=== PATIENT | female | born 1975 | race Caucasian/White ===

== ENCOUNTER 2016-07-31 17:42 | Observation (INO) ==
[2016-07-31] MEDS ORDERED: SODIUM CHLORIDE 0.9% 500 ML IV STA (18:09)
[2016-07-31] MEDS ORDERED: NITROGLYCERIN 2% OINT 1 INCH/GM PACK TOP STA (18:09)
[2016-07-31] MEDS ORDERED: ASPIRIN 325 MG TABLET PO STA (18:09)
[2016-07-31] MEDS ORDERED: ENOXAPARIN 100 MG/ML SYRINGE SUBCUT STA (18:09)
[2016-07-31] MEDS ORDERED: ONDANSETRON 4 MG/2 ML VIAL IV STA (18:09)
[2016-07-31] MEDS ORDERED: MORPHINE 2 MG/1 ML SYRINGE IV STA (18:09)
[2016-07-31] MEDS ORDERED: ONDANSETRON 4 MG/2 ML VIAL ONE (18:19)
[2016-07-31] MEDS ORDERED: MORPHINE 2 MG/1 ML SYRINGE ONE (18:19)
[2016-07-31] MEDS ORDERED: ENOXAPARIN 80 MG/0.8 ML SYRINGE SUBCUT ONE (18:19)
[2016-07-31] MEDS ORDERED: ASPIRIN 325 MG TABLET ONE (18:20)
[2016-07-31 18:22] LABS: Basophils % 0.3 % (0.0-0.8); Eosinophils # 0.1 10*3/uL (0.0-0.87); Eosinophils % 1.8 % (0.00-10.9); Hematocrit 40.4 VOL% (35.7-47.0); Hemoglobin 13.7 GM/DL (12.0-16.0); Immature Granulocytes % 0.3 %; Immature Granulocytes Absolute 0.02 #; Lymphocytes # 2.7 10*3/uL (1.4-4.0); Lymphocytes % 38.5 % (21.3-54.2); Mean Corpuscular HGB Conc 33.9 GM/DL (32-36); Mean Corpuscular Hemoglobin 31 PG (27-34); Mean Corpuscular Volume 90.6 FL (87-102); Mean Platelet Volume 12.9 FL (9.6-12.0); Monocytes # 0.6 10*3/uL (0.11-0.8); Monocytes % 8.3 % (1.7-12.7); Neutrophils # 3.6 10*3/uL (1.4-7.4); Neutrophils % 50.8 % (38.7-73.9); Platelet Count 132 T/CUMM (130-400); Red Blood Count 4.46 MC/CUMM (3.8-5.5); Red Cell Distribution Width 12.7 % (9.3-17.3); White Blood Count 7.1 T/CUMM (4-12)
[2016-07-31] MEDS ORDERED: NITROGLYCERIN 2% OINT 1 INCH/GM PACK TOP ONE (18:22)
[2016-07-31 18:28] LABS: PT Patient Result 10.5 SECS
[2016-07-31 18:35] LABS: Alanine Aminotransferase 25 U/L (13-56); Albumin 3.3 G/DL (3.4-5.0); Alkaline Phosphatase 83 U/L (45-117); Aspartate Amino Transferase 25 U/L (0-37); Bilirubin,Total < 0.39 MG/DL (0.2-1.0); Blood Urea Nitrogen 10 MG/DL (7-18); Calcium 9.7 MG/DL (8.5-10.1); Glucose 94 MG/DL (74-106); Magnesium 2.1 MG/DL (1.8-2.4); Osmolality,Calculated 286.7 MOS/KG (273-304); Sodium 145 MMOL/L (136-145); Total Protein 6.5 G/DL (6.4-8.3)
--- NOTE | 2016-07-31 18:41 | XRay Report ---
XR chest 1V portable Indication: Chest pain. Chest one view: Comparison 02/16/2015. Heart size and mediastinal contour are normal. Lungs are hypoinflated but generally clear, except for minimal bibasilar atelectasis. Pleural spaces are clear. Bones are intact. Impression: Mild pulmonary hypoinflation with atelectasis. PROCEDURE INTERPRETED AT [facility] DEPARTMENT OF RADIOLOGY Final Report Signed by: Ike Zuluaga M.D.
--- NOTE | 2016-07-31 19:06 | Emergency Department Note ---
Fabiola Powell Gwan, am scribing for, and in the presence of, Fede yS MD 18:26. Yossi Powell Robert M, MD, personally performed the services described in this documentation, ascribed by Christian Hicks in my presence, and it is both accurate and complete 906 . Arrival - Arrival Chief Complaint: Chest Pain Stated Complaint: Chest pain ED Nursing Triage Note: Arrived per EMS on stretcher. Complains of chest pain starting around 1700. Radiating to left arm. States that she had nausea and diaphoresis. Denies cardiac history. 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 She has a PMHx of HTN and high cholesterol. Patient describes her chest pain as constant/sharp and that it radiates to her left arm prompting her visit to the ED for further evaluation. En route, pt was given NTG with some relief. Her associated sxs have been nausea and diaphoresis. Patient confirmed a SHx of ETOH use, smoking cigarettes and smoking marijuana. During exam, pt stated that she is not having any chest discomfort. Onset (ago): hour(s) Consistency: constant Severity: moderate Date of Last Menstrual Period: Hyst Allergies/Adverse Reactions: Allergies Allergy/AdvReac Type Severity Reaction Status Date / Time Penicillins Allergy RASH Verified 06/14/14 22:28 Home Medications: Home Medications Medication Instructions Recorded Confirmed Type Acetamin/Codeine 300-30 Tab 300 mg PO QID 06/14/14 02/16/15 History [Tylenol/Codeine #3] Fluoxetine HCl [Prozac] 25 mg PO DAILY 06/14/14 02/16/15 History HydrOXYzine PAMOATE CAP [Vistaril 25 mg PO BID 06/14/14 02/16/15 History Cap] Losartan/Hctz 50-12.5 [Hyzaar 1 tablet PO DAILY 06/14/14 02/16/15 History 50-12.5] clonazePAM [Klonopin] 0.5 mg PO DAILY 06/14/14 02/16/15 History Diclofenac Sodium Tab [Voltaren] 50 mg PO TID #10 tablet 08/06/14 02/16/15 Rx Gabapentin [Gabapentin] 600 mg PO TID 08/06/14 02/16/15 History Benzonatate [Tessalon] 200 mg PO TID #20 capsule 10/15/14 02/16/15 Rx Ciprofloxacin Tab [Cipro Tab] 500 mg PO Q12HR #20 tablet 10/15/14 02/16/15 Rx Ketorolac Tab [Toradol Tab] 10 mg PO Q6H PRN #20 tablet 10/15/14 02/16/15 Rx Sulfameth/Trimeth 800-160 Tab 1 tablet PO BID 10 Days 02/17/15 Rx [Bactrim Ds Tab] Review of System - Review of System 12 point system: reviewed and no additional remarkable complaints except as stated - Review of System Constitutional: Present: as per HPI. Absent: chills, diaphoresis, fever Eyes: Absent: discharge Head/Ears/Nose/Throat: Absent: earache Respiratory: Absent: cough Cardiovascular: Present: as per HPI, chest pain Gastrointestinal: Absent: abdominal pain, nausea, vomiting, diarrhea Genitourinary female: Absent: dysuria Musculoskeletal: Absent: arm pain, back pain, leg pain, neck pain Skin: Absent: rash, lesions Neurological: Absent: headache, weakness Psychiatric: Absent: anxiety, depression Medical,Surgical,& Family Hx - Medical History Cardio: History of: Hypertension Psychological: History of: Anxiety Disorders, Depression Endocrine: History of: Dyslipidemia Other: History of: Miscellaneous Medical Problems (HIGH CHOLESTEROL) - Surgical History Reproductive Surgeries: Surgical HX of;: Hysterectomy - Family History Family History: Reports;: Family Heart Disease (paternal grandmother age greater than 60) - Social History Smoking Status: Current every day smoker Frequency of Alcohol Use: Occasionally Type of Drug Use: Marijuana Exam Vital Signs: Vital Signs Temperature 98.7 F 07/31/16 17:57 Pulse Rate 51 L 07/31/16 18:42 Respiratory Rate 21 07/31/16 18:42 Blood Pressure 154/77 07/31/16 18:42 O2 Sat by Pulse Oximetry 100 07/31/16 18:42 - General General appearance: alert, in no apparent distress - Head Head exam: Present: atraumatic, normocephalic - Eye Eye exam: Present: normal appearance, PERRL, EOMI - ENT ENT exam: Present: normal oropharynx, mucous membranes moist, TM's normal bilaterally, normal external ear exam - Neck Neck exam: Present: full ROM, trachea midline. Absent: tenderness - Chest Chest inspection: Present: symmetric chest wall rise. Absent: tenderness - Respiratory Respiratory exam: Present: normal lung sounds bilaterally. Absent: respiratory distress - Cardiovascular Cardiovascular exam: Present: regular rate, normal rhythm, normal heart sounds. Absent: murmur - Abdominal Exam Abdominal exam: Present: soft, normal bowel sounds. Absent: distention, tenderness - Extremities Exam Extremities exam: Present: full ROM. Absent: tenderness - Back Exam Back exam: Present: full ROM. Absent: tenderness - Neurological Exam Neurological exam: Present: alert, oriented X3, CN II-XII intact. Absent: motor sensory deficit - Psychiatric Psychiatric exam: Present: normal affect, normal mood - Skin Skin exam: Present: warm, dry, intact, normal color Course - Consultations Consultation #1: We will admit to the hospitalist service. Time: 19:26 Results - Labs CBC & BMP: 07/31/16 18:01 07/31/16 18:01 Lab Results: I have reviewed the patients labs Labs: Lab Results WBC 7.1 T/CUMM (4-12) 07/31/16 18:01 RBC 4.46 MC/CUMM (3.8-5.5) 07/31/16 18:01 Hgb 13.7 GM/DL (12.0-16.0) 07/31/16 18:01 Hct 40.4 VOL% (35.7-47.0) 07/31/16 18:01 MCV 90.6 FL (87-102) 07/31/16 18:01 MCH 31 PG (27-34) 07/31/16 18:01 MCHC 33.9 GM/DL (32-36) 07/31/16 18:01 RDW 12.7 % (9.3-17.3) 07/31/16 18:01 Plt Count 132 T/CUMM (130-400) 07/31/16 18:01 MPV 12.9 FL (9.6-12.0) H 07/31/16 18:01 Neut % (Auto) 50.8 % (38.7-73.9) 07/31/16 18:01 Lymph % (Auto) 38.5 % (21.3-54.2) 07/31/16 18:01 [place] % (Auto) 8.3 % (1.7-12.7) 07/31/16 18:01 Eos % (Auto) 1.8 % (0.00-10.9) 07/31/16 18:01 Baso % (Auto) 0.3 % (0.0-0.8) 07/31/16 18:01 Neut # (Auto) 3.6 10*3/uL (1.4-7.4) 07/31/16 18:01 Lymph # (Auto) 2.7 10*3/uL (1.4-4.0) 07/31/16 18:01 [place] # (Auto) 0.6 10*3/uL (0.11-0.8) 07/31/16 18:01 Eos # (Auto) 0.1 10*3/uL (0.0-0.87) 07/31/16 18:01 Baso # (Auto) 0.0 10*3/uL (0.0-0.2) 07/31/16 18:01 Immature Gran % 0.3 % 07/31/16 18:01 Nucleated RBC % 0.0 /100WBC 07/31/16 18:01 Immature Gran # 0.02 # 07/31/16 18:01 Nucleated RBCs # 0.00 10*3/uL 07/31/16 18:01 INR 1.0 07/31/16 18:01 PT Patient/Control Mix 10.5 SECS 07/31/16 18:01 Sodium 145 MMOL/L (136-145) 07/31/16 18:01 Potassium 3.0 MMOL/L (3.5-5.1) L 07/31/16 18:01 Chloride 107 MMOL/L (98-107) 07/31/16 18:01 Carbon Dioxide 30 MMOL/L (21-32) 07/31/16 18:01 Anion Gap 11.0 MMOL/L (5.0-15.0) 07/31/16 18:01 BUN 10 MG/DL (7-18) 07/31/16 18:01 Creatinine 0.80 MG/DL (0.55-1.02) 07/31/16 18:01 GFR Calculation 92 ML/MIN 07/31/16 18: BUN/Creatinine Ratio 12.00 RATIO (6.00-20.00) 07/31/16 18: Glucose 94 MG/DL (74-106) 07/31/16 18: Calculated Osmolality 286.7 MOS/KG (273-304) 07/31/16 18:01 Calcium 9.7 MG/DL (8.5-10.1) 07/31/16 18: Magnesium 2.1 MG/DL (1.8-2.4) 07/31/16 18: Total Bilirubin < 0.39 MG/DL (0.2-1.0) 07/31/16 18: AST 25 U/L (0-37) 07/31/16 18: ALT 25 U/L (13-56) 07/31/16 18: Alkaline Phosphatase 83 U/L (45-117) 07/31/16 18: Troponin I < 0.015 NG/ML (0.00-0.045) 07/31/16 18: B-Natriuretic Peptide 48 PG/ML (2-100) 07/31/16 18:01 Total Protein 6.5 G/DL (6.4-8.3) 07/31/16 18:01 Albumin 3.3 G/DL (3.4-5.0) L 07/31/16 18: Globulin 3.2 G/DL (2.3-3.5) 07/31/16 18:01 Albumin/Globulin Ratio 1.0 RATIO (1.1-2.2) L 07/31/16 18: Lipase 293.0 U/L (73-393) 07/31/16 18:01 Urine Color Yellow (Yellow) 07/31/16 18:01 Urine Appearance Cloudy (Clear) 07/31/16 18: Urine pH 6.0 (4.5-8.0) 07/31/16 18: Ur Specific [place] 1.005 (1.001-1.035) 07/31/16 18: Urine Protein Negative MG/DL 07/31/16 18:01 Urine Glucose (UA) Negative mg/dL (Negative) 07/31/16 18: Urine Ketones Negative mg/dL (Negative) 07/31/16 18:01 Urine Blood Small mg/dL (Negative) 07/31/16 18:01 Urine Nitrate Negative (Negative) 07/31/16 18:01 Urine Bilirubin Negative mg/dL (Negative) 07/31/16 18:01 Urine Urobilinogen < 2.0 EU/DL (0.2-1.0) H 07/31/16 18:01 Urine Leukocytes Trace Kaitlin/ul (Negative) 07/31/16 18:01 Urine WBC 7 /HPF (0-6) 07/31/16 18:01 Ur Squamous Epith Cells Occasional /HPF (0-10) 07/31/16 18:01 Urine Bacteria Few /HPF (Few) 07/31/16 18:01 Ur Culture Indicated? Results to follow 07/31/16 18:01 Urine Opiates Screen Negative (Negative) 07/31/16 18:01 Ur Barbiturates Screen Negative (Negative) 07/31/16 18:01 Ur Phencyclidine Scrn Negative (Negative) 07/31/16 18:01 U Amphetamine/Methamph Negative (Negative) 07/31/16 18:01 U Benzodiazepines Scrn Negative (Negative) 07/31/16 18:01 U Cocaine Metab Screen Negative (Negative) 07/31/16 18:01 U Cannabinoids Screen Positive (Negative) H 07/31/16 18:01 Disposition Clinical Impression: Chest pain Case discussed with: patient, patient's family Disposition: Still a Patient Condition: Stable Time of Disposition: 19:27
[2016-07-31 19:17] LABS: Apearance,Urine CLOUDY (Clear); Bacteria,Urine Few /HPF (Few); Bilirubin,Urine Negative (Negative); Blood, Urine Small mg/dL (Negative); Glucose,Urine (UA) Negative (Negative); Ketones,Urine Negative (Negative); Nitrite,Urine Negative (Negative); Protein,Urine Negative; Squamous Epithelial Cell,Urine Occasional /HPF (0-10); Urine Color Yellow (Yellow); Urine Specific Gravity 1.005 (1.001-1.035); Urine Urobilinogen < 2.0 EU/DL (0.2-1.0); WBC,Urine 7 /HPF (0-6)
[2016-07-31 19:23] LABS: Barbiturates Screen,Urine Negative (Negative); Benzodiazepines Screen,Urine Negative (Negative); Cannabinoid Screen,Urine Positive (Negative); Opiate Screen,Urine Negative (Negative); Phencyclidine Screen,Urine Negative (Negative)
[2016-07-31] MEDS ORDERED: POTASSIUM CHLORIDE 20 MEQ TABLET PO STA (19:25)
[2016-07-31] MEDS ORDERED: ONDANSETRON 4 MG/2 ML VIAL IV PRN (19:29)
[2016-07-31] MEDS ORDERED: ENOXAPARIN 40 MG/0.4 ML SYRINGE SUBCUT SCH (19:30)
[2016-07-31] MEDS ORDERED: POTASSIUM CHLORIDE 20 MEQ TABLET PO ONE (20:00)
--- NOTE | 2016-07-31 20:03 | Hospitalist History & Physical ---
Assessment and Plan (1) Hypertension Status: Acute Current Visit: Yes (2) Dyslipidemia Status: Acute Current Visit: Yes (3) Depression with anxiety Status: Acute Current Visit: Yes (4) Chest pain Status: Acute Assessment and plan: Our plan for this patient will be admission to our service. Patient will be placed in telemetry. Serial cardiac enzymes will be drawn. Consult cardiology and check a fasting lipid profile. When home meds are confirmed we will continue those as appropriate Current Visit: Yes History of Present Illness Chief complaint: Chest discomfort History of present illness: Ms. Loya is a 41 year old female with past medical history significant for hypertension includes cholesterol depression and anxiety who is in her normal state of health until 3 hours prior to arrival. Patient reports that time she she felt chest discomfort. She said it was feeling like a pressure sensation with a sharp component. She felt diaphoretic and shortness of breath. It radiated to her left arm. She got concerned that it was her heart and came to our hospital for further evaluation. Workup thus has been negative and I was consulted to admit her through the emergency room Home Medications Medication Instructions Recorded Confirmed Type Acetamin/Codeine 300-30 Tab 300 mg PO QID 06/14/14 02/16/15 History [Tylenol/Codeine #3] Fluoxetine HCl [Prozac] 25 mg PO DAILY 06/14/14 02/16/15 History HydrOXYzine PAMOATE CAP [Vistaril 25 mg PO BID 06/14/14 02/16/15 History Cap] Losartan/Hctz 50-12.5 [Hyzaar 1 tablet PO DAILY 06/14/14 02/16/15 History 50-12.5] clonazePAM [Klonopin] 0.5 mg PO DAILY 06/14/14 02/16/15 History Diclofenac Sodium Tab [Voltaren] 50 mg PO TID #10 tablet 08/06/14 02/16/15 Rx Gabapentin [Gabapentin] 600 mg PO TID 08/06/14 02/16/15 History Benzonatate [Tessalon] 200 mg PO TID #20 capsule 10/15/14 02/16/15 Rx Ciprofloxacin Tab [Cipro Tab] 500 mg PO Q12HR #20 tablet 10/15/14 02/16/15 Rx Ketorolac Tab [Toradol Tab] 10 mg PO Q6H PRN #20 tablet 10/15/14 02/16/15 Rx Sulfameth/Trimeth 800-160 Tab 1 tablet PO BID 10 Days 02/17/15 Rx [Bactrim Ds Tab] Allergies Allergy/AdvReac Type Severity Reaction Status Date / Time Penicillins Allergy RASH Verified 06/14/14 22:28 Medical,Surgical,& Family Hx - Medical History Cardio: History of: Hypertension Psychological: History of: Anxiety Disorders, Depression Endocrine: History of: Dyslipidemia Other: History of: Miscellaneous Medical Problems (HIGH CHOLESTEROL) - Surgical History Reproductive Surgeries: Surgical HX of;: Hysterectomy - Family History Family History: Reports;: Family Heart Disease (paternal grandmother age greater than 60) - Social History Smoking Status: Current every day smoker Frequency of Alcohol Use: Occasionally Type of Drug Use: Marijuana 12 point system: reviewed and no additional remarkable complaints except as stated Exam - Constitutional Vitals: Period Temp Pulse Resp BP Sys/[place] Pulse Ox Last 24 Hr 98.7 F-98.7 F 51-83 12-21 154-170/77-83 98-100 - General General appearance: alert, in no apparent distress - Head Head exam: Present: atraumatic, normocephalic - Eye Eye exam: Present: normal appearance, PERRL, EOMI - ENT ENT exam: Present: normal oropharynx, mucous membranes moist, TM's normal bilaterally, normal external ear exam - Neck Neck exam: Present: full ROM, trachea midline - Chest Chest inspection: Present: symmetric chest wall rise - Respiratory Respiratory exam: Present: normal lung sounds bilaterally - Cardiovascular Cardiovascular exam: Present: regular rate, normal rhythm, normal heart sounds. - Abdominal Exam Abdominal exam: Present: soft, normal bowel sounds. - Extremities Exam Extremities exam: Present: full ROM. - Back Exam Back exam: Present: full ROM. - Neurological Exam Neurological exam: Present: alert, oriented X3, CN II-XII intact. - Psychiatric Psychiatric exam: Present: normal affect, normal mood - Skin Skin exam: Present: warm, dry, intact, normal color multiple tattoos Results - Labs CBC & BMP: 07/31/16 18:01 07/31/16 18:01
[2016-07-31 20:23] LABS: Risk Ratio 3.2; VLDL CHOLESTEROL 37.8 MG/DL
[2016-08-01] MEDS: NITROGLYCERIN 2% OINT 1 INCH/GM PACK TOP SCH ×2 (01:12→06:09)
--- NOTE | 2016-08-01 08:28 | Cardiology Consult Note ---
<Devorah Medeiros - Last Filed: 08/01/16 08:05> Assessment and Plan - Time spent with patient Time spent with patient: Greater than 30 minutes (1) Atypical chest pain Status: Acute Assessment and plan: SEE PLAN OF CARE LISTED BELOW (2) Hypertriglyceridemia Status: Acute Assessment and plan: SEE PLAN OF CARE LISTED BELOW (3) Drug abuse Status: Chronic Assessment and plan: SEE PLAN OF CARE LISTED BELOW (4) Tobacco abuse Status: Chronic Assessment and plan: SEE PLAN OF CARE LISTED BELOW (5) Hypokalemia Status: Acute Assessment and plan: SEE PLAN OF CARE LISTED BELOW (6) Hypertension Status: Chronic Assessment and plan: SEE PLAN OF CARE LISTED BELOW (7) Depression with anxiety Status: Chronic Assessment and plan: SEE PLAN OF CARE LISTED BELOW History of Present Illness - Data of Consult Patient: new to practice Consult date: 08/01/16 Requesting Physician: Ike Hernández - Consult Narrative Reason for consult: chest pain History of present illness: Customer Complaint Clerk: New to cardiology (Dr. Villavicencio, [facility]) Ms. Loya is a 41 year old female without known history of coronary artery disease, not routinely followed by local cardiology. Patient has cardiac risk factors significant for hypertension, hypertriglyceridemia, current everyday smoker, sedentary lifestyle and family history of coronary artery disease ( patient reports that her grandmother from myocardial infarction in her 40s). Patient has a past medical history of depression and anxiety. She reports that she is a current everyday smoker and smokes approximately one half a pack a day. She also admits to smoking marijuana occasionally. Drug screen upon admission was positive for marijuana. Drinks alcohol occasionally. Patient reports that she has seen a cut off saw operator in [place]. She reports that she had a cardiac stress test in [place] that was normal. However, I do not recall there being a cut off saw operator in [place]. I feel that patient is confusing stress testing with possibly an EKG. Patient has never been seen by [facility] cardiology. Patient was in her usual state of health until yesterday when she reports experiencing left-sided chest pain. She reports the past few months have been extremely stressful as she has been fighting with her teenage kids. Yesterday, her and her significant other had a blowout. As they were waiting for help to arise in order to change their tire. She reports that she developed left-sided chest pain that radiated to her left arm. She describes the pain as a very sharp pain that then transition to a pressure type pain. Associated with shortness of breath, diaphoresis and nausea. She is unable to identify any alleviating factors. However, she does report that it was worsened at times with deep breathing. Without exertional component. After approximately 1 hour , she became concerned and called the ambulance. She was given nitroglycerin and aspirin per EMS, she tells me that this did not completely resolve her pain. However, it was slightly eased up from a 9.5 to a 5 on a scale from 1- 10. Upon arrival to [place] emergency department, she was given morphine. This eased up her pain even more from a 5 to a 2. Patient was then admitted under hospitalist's service and housed on the telemetry unit. Cardiology has been consulted to further evaluate patient's chest pain Patient was seen and examined on the telemetry unit. She is currently without chest pain, heaviness and tightness. Cardiac biomarkers have been negative 4. EKG reveals nonspecific ST and T-wave abnormality. Patient reports that her chest pain completely resolved spontaneously around 2:00 this morning. Upon exam, patient's chest pain is reproducible to light palpation. She then admits to a wrestling with a friend a couple of nights ago. Patient's chest pain is atypical in nature. Upon exam, patient's chest pain is reproducible to light palpation suggesting musculoskeletal in nature. At this point, I have added IV Toradol. Patient's EKG does reveal nonspecific ST and T-wave abnormality. We will continue to cycle EKG and cardiac biomarkers. I will keep patient n.p.o. and further discuss with Dr. Villavicencio regarding the need for further cardiac workup as patient does have several cardiac risk factors including: Hypertension , current everyday smoker, sedentary lifestyle and triglyceridemia. ASSESSMENT/PLAN: 1. ATYPICAL CHEST PAIN - Patient's chest pain is atypical in nature, without exertional component. Cardiac biomarkers have been negative 4. Upon exam, patient's chest pain is reproducible to light palpation suggesting musculoskeletal in nature. At this point, I have added IV Toradol. Patient's EKG does reveal nonspecific ST and T-wave abnormality. We will continue to cycle EKG and cardiac biomarkers. I will keep patient n.p.o. and further discuss with Dr. Villavicencio regarding the need for further cardiac workup as patient does have several cardiac risk factors including: Hypertension, current everyday smoker, sedentary lifestyle and triglyceridemia. 2. HYPERTENSION - This is well controlled. Will continue current plan of care. Will adjust patient's medications as needed throughout her hospitalization. 3. HYPERTRIGLYCERIDEMIA - Fish oil has been initiated. 4. DEPERESSION - Management per attending. 5. ANXIETY - Management per attending. This could also be playing a factor in patient's atypical chest pain. 6. DRUG ABUSE - Drug screen was positive for marijuana upon admission. Encouraged patient to no longer abused drugs. 7. TOBACCO ABUSE - Smoking cessation encouraged. 8. HYPOKALEMIA - Replace per protocol. CC: Zulema Nance MD - Home Medications and Allergies Home Medications: Home Medications Medication Instructions Recorded Confirmed Type HydrOXYzine PAMOATE CAP [Vistaril 25 mg PO BID 06/14/14 08/01/16 History Cap] clonazePAM [Klonopin] 0.5 mg PO BID 06/14/14 08/01/16 History Gabapentin 600 mg PO TID 08/06/14 08/01/16 History Losartan [Cozaar] 50 mg PO DAILY #30 tablet 08/01/16 Rx Omeprazole [Prilosec] 20 mg PO BID #60 capsule 08/01/16 Rx Allergies/Adverse Reactions: Allergies Allergy/AdvReac Type Severity Reaction Status Date / Time Penicillins Allergy RASH Verified 06/14/14 22:28 - Constitutional Constitutional: Present: headache(s). Absent: chills, fatigue, fever(s), frequent falls, weakness, weight gain, weight loss - Cardiovascular Cardiovascular: Present: chest pain at rest, diaphoresis, dyspnea, radiating jaw , neck or arm pain. Absent: chest pain with activity, claudication, edema, lightheadedness, orthopnea, palpitations, PND - Respiratory Respiratory: Present: dyspnea, pain on inspiration. Absent: cough, hemoptysis, wheezing, snoring, change in phlegm color - Gastrointestinal Gastrointestinal: Present: nausea. Absent: abdominal pain, change in bowel habits, coffee ground emesis, constipation, cramping, diarrhea, heartburn, hematemesis, hematochezia, loose stools, melena, vomiting - Neurological Neurological: Absent: abnormal gait, abnormal speech, behavioral changes, dizziness, frequent falls, numbness, paresthesias, syncope - Psychiatric Psychiatric: Present: anxiety, depression, other (Stress) Medical,Surgical,& Family Hx - Medical History Cardio: History of: Hypertension Psychological: History of: Anxiety Disorders, Depression - Surgical History Neurologic Surgeries: Patient denies: Neurologic Surgery Reproductive Surgeries: Surgical HX of;: Hysterectomy - Family History Family History: Reports;: Family Heart Disease (paternal grandmother age greater than 60) - Social History Smoking Status: Current every day smoker Frequency of Alcohol Use: Occasionally Type of Drug Use: Marijuana Marital Status: Lives With:: Spouse Functional capacity: independent ambulation Physical Examination Vital Signs Temp Pulse Resp Pulse Ox 98.7 F 83 18 98 07/31/16 17:42 07/31/16 17:42 07/31/16 17:42 07/31/16 17:42 Other: General: Appears well with no apparent distress. Pleasant and cooperative. Appears comfortable. HEENT: PERRL, normocephalic, atraumatic. Mucous membranes moist. No jaundice noted. Conjunctiva moist and clear, sclerae anicteric Neck: No JVD/HJR, no thyromegaly or lymphadenopathy noted. No carotid bruit appreciated Cardiac: Regular rate and rhythm. No murmur rub or gallop. Lungs: Clear to auscultation without accessory muscle use to assist the respiratory pattern. Not requiring oxygen. Abdomen: Soft, bowel sounds normoactive. Nontender and nondistended. No abdominal bruit or thrill noted. No masses noted. Extremities: No clubbing, cyanosis noted. No edema noted. Upper extremity pulses 2+. Lower extremity pulses 2+. Capillary refill less than 3 seconds. Skin: No unusual lesions or rashes. No skin breakdown appreciated. Neuro: Awake, alert and oriented 3. Moves all extremities well without hemiparesis or paralysis. No essential tremor is appreciated. Result/EKG - Labs CBC & BMP: 07/31/16 18:01 07/31/16 18:01 Lab Results: I have reviewed the past 24 hour labs Labs: Laboratory Results - last 24 hr 07/31/16 07/31/16 07/31/16 18:01 18:01 18:01 WBC RBC Hgb Hct MCV MCH MCHC RDW Plt Count MPV Neut % (Auto) Lymph % (Auto) [place] % (Auto) Eos % (Auto) Baso % (Auto) Neut # (Auto) Lymph # (Auto) [place] # (Auto) Eos # (Auto) Baso # (Auto) Immature Gran % Nucleated RBC % Immature Gran # Nucleated RBCs # INR 1.0 PT Patient/Control Mix 10.5 Sodium 145 Potassium 3.0 L Chloride 107 Carbon Dioxide 30 Anion Gap 11.0 BUN 10 Creatinine 0.80 GFR Calculation 92 BUN/Creatinine Ratio 12.00 Glucose 94 Calculated Osmolality 286.7 Calcium 9.7 Magnesium 2.1 Total Bilirubin < 0.39 AST 25 ALT 25 Alkaline Phosphatase 83 Troponin I B-Natriuretic Peptide Total Protein 6.5 Albumin 3.3 L Globulin 3.2 Albumin/Globulin Ratio 1.0 L Triglycerides Cholesterol LDL Cholesterol VLDL Cholesterol HDL Cholesterol Heart Disease Risk Ratio Lipase 293.0 Urine Color Yellow Urine Appearance Cloudy Urine pH 6.0 Ur Specific [place] 1.005 Urine Protein Negative Urine Glucose (UA) Negative Urine Ketones Negative Urine Blood Small Urine Nitrate Negative Urine Bilirubin Negative Urine Urobilinogen < 2.0 H Urine Leukocytes Trace Urine WBC 7 Ur Squamous Epith Cells Occasional Urine Bacteria Few Ur Culture Indicated? Results to follow Urine Opiates Screen Ur Barbiturates Screen Ur Phencyclidine Scrn U Amphetamine/Methamph U Benzodiazepines Scrn U Cocaine Metab Screen U Cannabinoids Screen 07/31/16 07/31/16 07/31/16 18:01 18:01 18:01 WBC 7.1 RBC 4.46 Hgb 13.7 Hct 40.4 MCV 90.6 MCH 31 MCHC 33.9 RDW 12.7 Plt Count 132 MPV 12.9 H Neut % (Auto) 50.8 Lymph % (Auto) 38.5 [place] % (Auto) 8.3 Eos % (Auto) 1.8 Baso % (Auto) 0.3 Neut # (Auto) 3.6 Lymph # (Auto) 2.7 [place] # (Auto) 0.6 Eos # (Auto) 0.1 Baso # (Auto) 0.0 Immature Gran % 0.3 Nucleated RBC % 0.0 Immature Gran # 0.02 Nucleated RBCs # 0.00 INR PT Patient/Control Mix Sodium Potassium Chloride Carbon Dioxide Anion Gap BUN Creatinine GFR Calculation BUN/Creatinine Ratio Glucose Calculated Osmolality Calcium Magnesium Total Bilirubin AST ALT Alkaline Phosphatase Troponin I B-Natriuretic Peptide 48 Total Protein Albumin Globulin Albumin/Globulin Ratio Triglycerides Cholesterol LDL Cholesterol VLDL Cholesterol HDL Cholesterol Heart Disease Risk Ratio Lipase Urine Color Urine Appearance Urine pH Ur Specific [place] Urine Protein Urine Glucose (UA) Urine Ketones Urine Blood Urine Nitrate Urine Bilirubin Urine Urobilinogen Urine Leukocytes Urine WBC Ur Squamous Epith Cells Urine Bacteria Ur Culture Indicated? Urine Opiates Screen Negative Ur Barbiturates Screen Negative Ur Phencyclidine Scrn Negative U Amphetamine/Methamph Negative U Benzodiazepines Scrn Negative U Cocaine Metab Screen Negative U Cannabinoids Screen Positive H 07/31/16 07/31/16 07/31/16 18:01 18:01 20:56 WBC RBC Hgb Hct MCV MCH MCHC RDW Plt Count MPV Neut % (Auto) Lymph % (Auto) [place] % (Auto) Eos % (Auto) Baso % (Auto) Neut # (Auto) Lymph # (Auto) [place] # (Auto) Eos # (Auto) Baso # (Auto) Immature Gran % Nucleated RBC % Immature Gran # Nucleated RBCs # INR PT Patient/Control Mix Sodium Potassium Chloride Carbon Dioxide Anion Gap BUN Creatinine GFR Calculation BUN/Creatinine Ratio Glucose Calculated Osmolality Calcium Magnesium Total Bilirubin AST ALT Alkaline Phosphatase Troponin I < 0.015 < 0.015 B-Natriuretic Peptide Total Protein Albumin Globulin Albumin/Globulin Ratio Triglycerides 189 H Cholesterol 141 LDL Cholesterol 77.0 VLDL Cholesterol 37.8 HDL Cholesterol 44 Heart Disease Risk Ratio 3.20 Lipase Urine Color Urine Appearance Urine pH Ur Specific [place] Urine Protein Urine Glucose (UA) Urine Ketones Urine Blood Urine Nitrate Urine Bilirubin Urine Urobilinogen Urine Leukocytes Urine WBC Ur Squamous Epith Cells Urine Bacteria Ur Culture Indicated? Urine Opiates Screen Ur Barbiturates Screen Ur Phencyclidine Scrn U Amphetamine/Methamph U Benzodiazepines Scrn U Cocaine Metab Screen U Cannabinoids Screen 07/31/16 08/01/16 22:14 01:57 WBC RBC Hgb Hct MCV MCH MCHC RDW Plt Count MPV Neut % (Auto) Lymph % (Auto) [place] % (Auto) Eos % (Auto) Baso % (Auto) Neut # (Auto) Lymph # (Auto) [place] # (Auto) Eos # (Auto) Baso # (Auto) Immature Gran % Nucleated RBC % Immature Gran # Nucleated RBCs # INR PT Patient/Control Mix Sodium Potassium Chloride Carbon Dioxide Anion Gap BUN Creatinine GFR Calculation BUN/Creatinine Ratio Glucose Calculated Osmolality Calcium Magnesium Total Bilirubin AST ALT Alkaline Phosphatase Troponin I < 0.015 < 0.015 B-Natriuretic Peptide Total Protein Albumin Globulin Albumin/Globulin Ratio Triglycerides Cholesterol LDL Cholesterol VLDL Cholesterol HDL Cholesterol Heart Disease Risk Ratio Lipase Urine Color Urine Appearance Urine pH Ur Specific [place] Urine Protein Urine Glucose (UA) Urine Ketones Urine Blood Urine Nitrate Urine Bilirubin Urine Urobilinogen Urine Leukocytes Urine WBC Ur Squamous Epith Cells Urine Bacteria Ur Culture Indicated? Urine Opiates Screen Ur Barbiturates Screen Ur Phencyclidine Scrn U Amphetamine/Methamph U Benzodiazepines Scrn U Cocaine Metab Screen U Cannabinoids Screen Specialty Discharge - Follow Up or Referrals Follow up with: dr lisa [Other] - 2 Weeks Cydney Villavicencio DO [Physician] - 2 Weeks (august 22 at 330pm) <Cydney Villavicencio - Last Filed: 08/02/16 06:13> History of Present Illness - Consult Narrative History of present illness: Ms. Loya is a 41 year old female I saw and examined Ms. Loya with Ms. Medeiros. I edited this note and agreed with above yesterday but apparently he did not save properly and today is not present. The patient had atypical sounding chest pain while a family member was changing a flat tire. She has had no exertional chest pain she previously has had a workup with stress test done at [facility]. It was negative. I talked to the patient in great detail and length about risk factor modification. I recommended she stop smoking we will add lipids as appropriate by guideline based therapy and continue control of her hypertension. She has drug abuse history and positive drug screen for marijuana. Her EKG shows LVH with nonspecific ST segment changes she has been ruled out for myocardial infarction I recommended an outpatient gated nuclear stress test. I recommended that she stop smoking and take an aspirin a day. I agree with exam below the past medical history review of systems assessment and plan as per Ms. Medeiros's documentation. CC: Zulema Nance MD Physical Examination Vital Signs Temp Pulse Resp Pulse Ox 98.7 F 83 18 98 07/31/16 17:42 07/31/16 17:42 07/31/16 17:42 07/31/16 17:42 Result/EKG - Labs CBC & BMP: 07/31/16 18:01 07/31/16 18:01
[2016-08-01] MEDS ORDERED: POTASSIUM CHLORIDE 20 MEQ TABLET PO PRN (08:32)
[2016-08-01] MEDS ORDERED: KETOROLAC 30 MG/1 ML VIAL IV PRN (08:32)
--- NOTE | 2016-08-01 08:58 | EKG Report ---
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
[2016-08-01] MEDS ORDERED: ASPIRIN EC 325 MG TABLET PO SCH (09:00)
[2016-08-01] MEDS ORDERED: ASPIRIN EC 81 MG TABLET PO SCH (09:00)
[2016-08-01] MEDS ORDERED: OMEGA 3 ACID ETHYL ESTERS 1 GM CAPSULE PO SCH (09:00)
[2016-08-01] MEDS ORDERED: POTASSIUM CHLORIDE 20 MEQ TABLET PO ONE (10:58)
--- NOTE | 2016-08-01 11:00 | Discharge Summary ---
Hospital Course - Hospital Course Hospital Course: 41-year-old female with a history of hypertension presents to the emergency room with complaints of chest pain. Her serial troponins are negative. Her total cholesterol is 141. Cardiology was consulted. Pain that she describes to me seems rather atypical. If no stress test is needed she will be discharged home. Advised her to stop smoking. Her urine drug screen was positive for marijuana. Her potassium was low and has been replaced. I will modify her blood pressure medicines to take the diuretic count which is lowering her potassium. Patient most likely has GERD. I have recommended over- the-counter omeprazole. Follow-up with primary medical doctor in 2 weeks - Time spent with patient Time with patient DS: Less than 30 minutes (25 min) Discharge Plan - Discharge Data Disposition: Disch To Home/Self Care Condition at Discharge: Stable Discharge Diet: heart healthy Activity: resume usual activities as tolerated Hygiene: no restrictions Weight Bearing at Discharge: full weight bearing - Discharge Medications New Omeprazole [Prilosec] 20 mg PO BID #60 capsule Losartan [Cozaar] 50 mg PO DAILY #30 tablet Continue clonazePAM [Klonopin] 0.5 mg PO BID HydrOXYzine PAMOATE CAP [Vistaril Cap] 25 mg PO BID Gabapentin 600 mg PO TID Discontinued Losartan/Hctz 50-12.5 [Hyzaar 50-12.5] 1 tablet PO DAILY - Follow Up or Referral Follow Up: pmd, [Other] - 2 Weeks - Forms/Instructions Additional Discharge Instructions: if Dr. Villavicencio does not feel stress test is needed Exam - Constitutional Vitals: Period Temp Pulse Resp BP Sys/[place] Pulse Ox Last 24 Hr 96.9 F-98.7 F 50-83 12-21 106-170/60-96 95-100 General appearance: normal weight, no acute distress - Respiratory Respiratory exam: Present: clear to auscultation bilaterally. Absent: rhonchi, wheezes - Cardiovascular Cardiovascular exam: Present: regular rate and rhythm. Absent: systolic murmur - GI/Abdominal GI/Abdominal exam: Present: normal bowel sounds, soft. Absent: tenderness - Extremities Exam Extremities exam: Present: normal inspection, normal capillary refill Discharge Results Procedures and tests throughout hospitalization: Pending Orders 07/31/16 Urine Culture Routine Labs on day of discharge: Labs from last 24 hours 06/21/17 06/20/17 06/20/17 01:57 22:14 20:56 WBC RBC Hgb Hct MCV MCH MCHC RDW Plt Count MPV Neut % (Auto) Lymph % (Auto) [place] % (Auto) Eos % (Auto) Baso % (Auto) Neut # (Auto) Lymph # (Auto) [place] # (Auto) Eos # (Auto) Baso # (Auto) Immature Gran % Nucleated RBC % Immature Gran # Nucleated RBCs # INR PT Patient/Control Mix Sodium Potassium Chloride Carbon Dioxide Anion Gap BUN Creatinine GFR Calculation BUN/Creatinine Ratio Glucose Calculated Osmolality Calcium Magnesium Total Bilirubin AST ALT Alkaline Phosphatase Troponin I < 0.015 < 0.015 < 0.015 B-Natriuretic Peptide Total Protein Albumin Globulin Albumin/Globulin Ratio Triglycerides Cholesterol LDL Cholesterol VLDL Cholesterol HDL Cholesterol Heart Disease Risk Ratio Lipase Urine Color Urine Appearance Urine pH Ur Specific [place] Urine Protein Urine Glucose (UA) Urine Ketones Urine Blood Urine Nitrate Urine Bilirubin Urine Urobilinogen Urine Leukocytes Urine WBC Ur Squamous Epith Cells Urine Bacteria Ur Culture Indicated? Urine Opiates Screen Ur Barbiturates Screen Ur Phencyclidine Scrn U Amphetamine/Methamph U Benzodiazepines Scrn U Cocaine Metab Screen U Cannabinoids Screen 07/31/16 07/31/16 07/31/16 18:01 18:01 18:01 WBC 7.1 RBC 4.46 Hgb 13.7 Hct 40.4 MCV 90.6 MCH 31 MCHC 33.9 RDW 12.7 Plt Count 132 MPV 12.9 H Neut % (Auto) 50.8 Lymph % (Auto) 38.5 [place] % (Auto) 8.3 Eos % (Auto) 1.8 Baso % (Auto) 0.3 Neut # (Auto) 3.6 Lymph # (Auto) 2.7 [place] # (Auto) 0.6 Eos # (Auto) 0.1 Baso # (Auto) 0.0 Immature Gran % 0.3 Nucleated RBC % 0.0 Immature Gran # 0.02 Nucleated RBCs # 0.00 INR PT Patient/Control Mix Sodium Potassium Chloride Carbon Dioxide Anion Gap BUN Creatinine GFR Calculation BUN/Creatinine Ratio Glucose Calculated Osmolality Calcium Magnesium Total Bilirubin AST ALT Alkaline Phosphatase Troponin I < 0.015 B-Natriuretic Peptide Total Protein Albumin Globulin Albumin/Globulin Ratio Triglycerides 189 H Cholesterol 141 LDL Cholesterol 77.0 VLDL Cholesterol 37.8 HDL Cholesterol 44 Heart Disease Risk Ratio 3.20 Lipase Urine Color Urine Appearance Urine pH Ur Specific [place] Urine Protein Urine Glucose (UA) Urine Ketones Urine Blood Urine Nitrate Urine Bilirubin Urine Urobilinogen Urine Leukocytes Urine WBC Ur Squamous Epith Cells Urine Bacteria Ur Culture Indicated? Urine Opiates Screen Ur Barbiturates Screen Ur Phencyclidine Scrn U Amphetamine/Methamph U Benzodiazepines Scrn U Cocaine Metab Screen U Cannabinoids Screen 07/31/16 07/31/16 07/31/16 18:01 18:01 18:01 WBC RBC Hgb Hct MCV MCH MCHC RDW Plt Count MPV Neut % (Auto) Lymph % (Auto) [place] % (Auto) Eos % (Auto) Baso % (Auto) Neut # (Auto) Lymph # (Auto) [place] # (Auto) Eos # (Auto) Baso # (Auto) Immature Gran % Nucleated RBC % Immature Gran # Nucleated RBCs # INR PT Patient/Control Mix Sodium 145 Potassium 3.0 L Chloride 107 Carbon Dioxide 30 Anion Gap 11.0 BUN 10 Creatinine 0.80 GFR Calculation 92 BUN/Creatinine Ratio 12.00 Glucose 94 Calculated Osmolality 286.7 Calcium 9.7 Magnesium 2.1 Total Bilirubin < 0.39 AST 25 ALT 25 Alkaline Phosphatase 83 Troponin I B-Natriuretic Peptide 48 Total Protein 6.5 Albumin 3.3 L Globulin 3.2 Albumin/Globulin Ratio 1.0 L Triglycerides Cholesterol LDL Cholesterol VLDL Cholesterol HDL Cholesterol Heart Disease Risk Ratio Lipase 293.0 Urine Color Urine Appearance Urine pH Ur Specific [place] Urine Protein Urine Glucose (UA) Urine Ketones Urine Blood Urine Nitrate Urine Bilirubin Urine Urobilinogen Urine Leukocytes Urine WBC Ur Squamous Epith Cells Urine Bacteria Ur Culture Indicated? Urine Opiates Screen Negative Ur Barbiturates Screen Negative Ur Phencyclidine Scrn Negative U Amphetamine/Methamph Negative U Benzodiazepines Scrn Negative U Cocaine Metab Screen Negative U Cannabinoids Screen Positive H 07/31/16 07/31/16 18:01 18:01 WBC RBC Hgb Hct MCV MCH MCHC RDW Plt Count MPV Neut % (Auto) Lymph % (Auto) [place] % (Auto) Eos % (Auto) Baso % (Auto) Neut # (Auto) Lymph # (Auto) [place] # (Auto) Eos # (Auto) Baso # (Auto) Immature Gran % Nucleated RBC % Immature Gran # Nucleated RBCs # INR 1.0 PT Patient/Control Mix 10.5 Sodium Potassium Chloride Carbon Dioxide Anion Gap BUN Creatinine GFR Calculation BUN/Creatinine Ratio Glucose Calculated Osmolality Calcium Magnesium Total Bilirubin AST ALT Alkaline Phosphatase Troponin I B-Natriuretic Peptide Total Protein Albumin Globulin Albumin/Globulin Ratio Triglycerides Cholesterol LDL Cholesterol VLDL Cholesterol HDL Cholesterol Heart Disease Risk Ratio Lipase Urine Color Yellow Urine Appearance Cloudy Urine pH 6.0 Ur Specific [place] 1.005 Urine Protein Negative Urine Glucose (UA) Negative Urine Ketones Negative Urine Blood Small Urine Nitrate Negative Urine Bilirubin Negative Urine Urobilinogen < 2.0 H Urine Leukocytes Trace Urine WBC 7 Ur Squamous Epith Cells Occasional Urine Bacteria Few Ur Culture Indicated? Results to follow Urine Opiates Screen Ur Barbiturates Screen Ur Phencyclidine Scrn U Amphetamine/Methamph U Benzodiazepines Scrn U Cocaine Metab Screen U Cannabinoids Screen DS: Provider Date of admission: 07/31/16 19:29 Primary care physician: . No PCP Attending physician on admission: Ike Hernández MD Consults: 07/31/16 19:32 Consult to Physician [CONS] Routine Comment: Consulting Provider: Cydney Villavicencio Consult to Specialist Group: Cardiology When should Consulting Provider be notified: In am Person Notified: NIC Date Notified: 08/01/16 Time Notified: 08:10 Discharging clinician: Zulema Nance MD
[2016-08-01 11:52] VITALS: BP 112/65
--- NOTE | 2016-08-01 14:13 | Event Note ---
I came to see Ms. Loya to evaluate her. I discussed with Ms. Medeiros. She was not in the room she is gone downstairs to smoke in the rain. Apparently she is not having chest discomfort. Her biomarkers are negative. I will make a reasonable attempt to come back to see her today. It sounds to me as though she is not having enough chest pain to staying her room and obviously she walked downstairs she must be doing quite well. 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 I recommend mitigating risk factors the first of which is smoking cessation and control dyslipidemia and she probably would benefit from a low-dose aspirin a day. These are generalizations and did not necessarily apply this patient but are likely beneficial.
== END 2016-08-01 16:03 | disposition home or self-care (01) ==
LOC: EDBD → EDUNIT# → N.EDINP 17:42 → N.ED 17:42 → SUATTDRO 19:29 → N.TELEN 19:45 → N.TELES 08-01 15:07 → N.TELEN 08-01 15:14
PROVIDERS: ADMIT Internal Medicine; ATTEND Internal Medicine

== ENCOUNTER 2017-10-29 17:05 | Observation (INO) ==
[2017-10-29] MEDS ORDERED: MAGNESIUM SULF RIDER 2 GM in PREMIX 1 EACH IV PRN (17:20)
[2017-10-29] MEDS ORDERED: DOCUSATE SODIUM 100 MG CAPSULE PO PRN (17:20)
[2017-10-29] MEDS ORDERED: ZALEPLON 5 MG CAPSULE PO PRN (17:20)
[2017-10-29] MEDS ORDERED: ONDANSETRON 4 MG/2 ML VIAL IV PRN (17:20)
[2017-10-29] MEDS ORDERED: ACETAMINOPHEN 325 MG TABLET PO PRN (17:20)
[2017-10-29] MEDS ORDERED: MAGNESIUM SULF RIDER 4 GM in PREMIX 1 EACH IV PRN (17:20)
[2017-10-29] MEDS ORDERED: ASPIRIN 325 MG TABLET PO ONE (17:24)
[2017-10-29] MEDS ORDERED: NITROGLYCERIN SL 0.4 MG TABLET SL PRN (17:25)
[2017-10-29] MEDS ORDERED: METOPROLOL SUCCINATE XL 25 MG TABLET PO ONE (17:25)
[2017-10-29] MEDS ORDERED: PNEUMOCOCCAL VACCINE (23 VALENT) 0.5 ML VIAL IM ONE (18:05)
[2017-10-29 18:09] LABS: Basophils % 0.5 % (0.0-0.8); Eosinophils # 0.2 10*3/uL (0.0-0.87); Eosinophils % 2.8 % (0.00-10.9); Hemoglobin 14.8 GM/DL (12.0-16.0); Immature Granulocytes % 0.3 %; Immature Granulocytes Absolute 0.02 #; Lymphocytes % 39.1 % (21.3-54.2); Mean Corpuscular HGB Conc 33.6 GM/DL (32-36); Mean Corpuscular Hemoglobin 31 PG (27-34); Mean Corpuscular Volume 90.9 FL (87-102); Mean Platelet Volume 12.3 FL (9.6-12.0); Monocytes # 0.6 10*3/uL (0.11-0.8); Monocytes % 7.5 % (1.7-12.7); Neutrophils # 3.8 10*3/uL (1.4-7.4); Neutrophils % 49.8 % (38.7-73.9); Platelet Count 158 T/CUMM (130-400); Red Blood Count 4.84 MC/CUMM (3.8-5.5); Red Cell Distribution Width 13.1 % (9.3-17.3); White Blood Count 7.6 T/CUMM (4-12)
[2017-10-29 18:35] LABS: Troponin I < 0.015 NG/ML (0.00-0.045)
[2017-10-29 18:47] LABS: Albumin 4.1 G/DL (3.4-5.0); Bilirubin,Total 0.8 MG/DL (0.2-1.0); Osmolality,Calculated 279.1 MOS/KG (273-304); Potassium 2.8 MMOL/L (3.5-5.1); Total Protein 7.7 G/DL (6.4-8.3)
[2017-10-29] MEDS ORDERED: POTASSIUM CHLORIDE RIDER 10 MEQ in PREMIX 1 EACH IV PRN (19:18)
[2017-10-29] MEDS: POTASSIUM CHLORIDE 20 MEQ TABLET PO PRN ×2 (19:47→22:10)
[2017-10-29] MEDS: ENOXAPARIN 40 MG/0.4 ML SYRINGE SUBCUT SCH (21:08)
[2017-10-30] MEDS: POTASSIUM CHLORIDE 20 MEQ TABLET PO PRN ×2 (00:23→01:54)
[2017-10-30 05:29] LABS: Risk Ratio 3.28
[2017-10-30] MEDS ORDERED: HydrOXYzine PAMOATE 25 MG CAPSULE PO PRN (07:33)
[2017-10-30] MEDS: PANTOPRAZOLE 40 MG TABLET PO SCH ×2 (08:18→20:48)
[2017-10-30] MEDS: GABAPENTIN 300 MG CAPSULE PO SCH ×3 (08:18→20:48)
[2017-10-30] MEDS: clonazePAM 0.5 MG TABLET PO SCH ×2 (08:18→20:48)
[2017-10-30] MEDS: ASPIRIN EC 81 MG TABLET PO SCH (08:18)
[2017-10-30] MEDS: DULoxetine 20 MG CAPSULE PO SCH (08:18)
[2017-10-30] MEDS ORDERED: METOPROLOL SUCCINATE XL 25 MG TABLET PO SCH (09:00)
[2017-10-30] MEDS ORDERED: REGADENOSON 0.4 MG/5 ML SYRINGE IV ONE (09:39)
[2017-10-30] MEDS ORDERED: MAGNESIUM SULF RIDER 2 GM in PREMIX 1 EACH IV PRN (11:24)
[2017-10-30] MEDS ORDERED: ASPIRIN 325 MG TABLET PO ONE (11:24)
[2017-10-30] MEDS ORDERED: diphenhydrAMINE CAP 25 MG CAPSULE PO ONE (11:24)
[2017-10-30] MEDS ORDERED: POTASSIUM CHLORIDE RIDER 10 MEQ in PREMIX 1 EACH IV PRN (11:24)
[2017-10-30] MEDS ORDERED: DIAZEPAM 5 MG TABLET PO ONE (11:24)
[2017-10-30] MEDS ORDERED: SODIUM CHLORIDE 0.9% 1,000 ML IV SCH (11:30)
[2017-10-30 11:46] LABS: Barbiturates Screen,Urine Negative (Negative); Benzodiazepines Screen,Urine Negative (Negative); Cannabinoid Screen,Urine Positive (Negative); Opiate Screen,Urine Negative (Negative); Phencyclidine Screen,Urine Negative (Negative)
[2017-10-30] MEDS ORDERED: MIDAZOLAM 2 MG/2 ML VIAL ONE (12:08)
[2017-10-30] MEDS ORDERED: fentaNYL 100 MCG/2 ML VIAL ONE (12:08)
[2017-10-30] MEDS ORDERED: LIDOCAINE 1% 20 ML VIAL ONE (12:08)
[2017-10-30] MEDS ORDERED: HEPARIN 5,000 UNIT/1 ML VIAL ONE (12:40)
[2017-10-30] MEDS: ENOXAPARIN 40 MG/0.4 ML SYRINGE SUBCUT SCH (20:48)
[2017-10-31 05:39] LABS: Basophils % 0.5 % (0.0-0.8); Eosinophils # 0.2 10*3/uL (0.0-0.87); Eosinophils % 3.4 % (0.00-10.9); Hematocrit 40.1 VOL% (35.7-47.0); Hemoglobin 13.2 GM/DL (12.0-16.0); Immature Granulocytes % 0.4 %; Immature Granulocytes Absolute 0.02 #; Lymphocytes % 54.7 % (21.3-54.2); Mean Corpuscular HGB Conc 32.9 GM/DL (32-36); Mean Corpuscular Hemoglobin 30 PG (27-34); Mean Corpuscular Volume 90.9 FL (87-102); Mean Platelet Volume 13.2 FL (9.6-12.0); Monocytes # 0.4 10*3/uL (0.11-0.8); Monocytes % 7.2 % (1.7-12.7); Neutrophils # 1.9 10*3/uL (1.4-7.4); Neutrophils % 33.8 % (38.7-73.9); Platelet Count 143 T/CUMM (130-400); Red Blood Count 4.41 MC/CUMM (3.8-5.5); Red Cell Distribution Width 13.2 % (9.3-17.3); White Blood Count 5.5 T/CUMM (4-12)
[2017-10-31 06:05] LABS: Calcium 8.2 MG/DL (8.5-10.1); Osmolality,Calculated 280.1 MOS/KG (273-304); Potassium 3.5 MMOL/L (3.5-5.1)
[2017-10-31 06:06] LABS: Calcium 8.2 MG/DL (8.5-10.1); Potassium 3.5 MMOL/L (3.5-5.1)
[2017-10-31 06:12] LABS: Lymphocytes 51 % (20-55); Platelet Estimate Normal; Segmented Neutrophils 43 % (50-85); Total Cells Counted 100
[2017-10-31] MEDS: ASPIRIN EC 81 MG TABLET PO SCH (08:16)
[2017-10-31] MEDS: PANTOPRAZOLE 40 MG TABLET PO SCH (08:16)
[2017-10-31] MEDS: DULoxetine 20 MG CAPSULE PO SCH (08:16)
[2017-10-31] MEDS: clonazePAM 0.5 MG TABLET PO SCH (08:16)
[2017-10-31] MEDS: GABAPENTIN 300 MG CAPSULE PO SCH (08:16)
[2017-10-31 08:32] VITALS: BP 141/88
[2017-10-31] MEDS ORDERED: ISOSORBIDE MONONITRATE 30 MG TABLET PO SCH (09:00)
[2017-10-31] MEDS ORDERED: METOPROLOL SUCCINATE XL 25 MG TABLET PO SCH (09:00)
[2017-10-31] MEDS ORDERED: SIMVASTATIN 20 MG TABLET PO SCH (21:00)
== END 2017-10-31 09:30 | disposition home or self-care (01) ==
LOC: N.ICU
PROVIDERS: ADMIT Internal Medicine Clinical Cardiac Electrophysiology; ATTEND Internal Medicine Clinical Cardiac Electrophysiology
PROC: CLCCHCL (ICD-10-PCS; 2017-10-30 12:15)

== ENCOUNTER 2017-11-06 19:59 | Observation (INO) ==
[2017-11-06 20:58] LABS: Basophils % 0.4 % (0.0-0.8); Eosinophils # 0.2 10*3/uL (0.0-0.87); Eosinophils % 2.4 % (0.00-10.9); Hematocrit 40.9 VOL% (35.7-47.0); Hemoglobin 13.4 GM/DL (12.0-16.0); Immature Granulocytes % 0.6 %; Immature Granulocytes Absolute 0.05 #; Lymphocytes # 2.9 10*3/uL (1.4-4.0); Lymphocytes % 36.7 % (21.3-54.2); Mean Corpuscular HGB Conc 32.8 GM/DL (32-36); Mean Corpuscular Hemoglobin 30 PG (27-34); Mean Corpuscular Volume 91.5 FL (87-102); Mean Platelet Volume 12.8 FL (9.6-12.0); Monocytes # 0.5 10*3/uL (0.11-0.8); Monocytes % 5.8 % (1.7-12.7); Neutrophils # 4.3 10*3/uL (1.4-7.4); Neutrophils % 54.1 % (38.7-73.9); Platelet Count 164 T/CUMM (130-400); Red Blood Count 4.47 MC/CUMM (3.8-5.5); Red Cell Distribution Width 13.1 % (9.3-17.3); White Blood Count 7.9 T/CUMM (4-12)
[2017-11-06 21:08] LABS: PT Patient Result 10.6 SECS; Partial Thromboplastin Time 28.2 SECS (0-40)
[2017-11-06] MEDS ORDERED: MORPHINE 4 MG/1 ML VIAL IV STA (21:13)
[2017-11-06] MEDS ORDERED: ENOXAPARIN 100 MG/ML SYRINGE SUBCUT STA (21:13)
[2017-11-06] MEDS ORDERED: NITROGLYCERIN 2% OINT 1 INCH/GM PACK TOP STA (21:13)
[2017-11-06] MEDS ORDERED: ASPIRIN 325 MG TABLET PO STA (21:13)
[2017-11-06] MEDS ORDERED: ONDANSETRON 4 MG/2 ML VIAL IV STA (21:13)
[2017-11-06] MEDS ORDERED: METOPROLOL TARTRATE 25 MG TABLET PO STA (21:13)
[2017-11-06 21:20] LABS: Alanine Aminotransferase 18 U/L (13-56); Albumin 3.8 G/DL (3.4-5.0); Alkaline Phosphatase 87 U/L (45-117); Aspartate Amino Transferase 16 U/L (0-37); Bilirubin,Total < 0.39 MG/DL (0.2-1.0); Blood Urea Nitrogen 10 MG/DL (7-18); Glucose 90 MG/DL (74-106); Osmolality,Calculated 284.8 MOS/KG (273-304); Potassium 3.6 MMOL/L (3.5-5.1); Sodium 144 MMOL/L (136-145); Total Protein 7.2 G/DL (6.4-8.3)
[2017-11-06 23:45] LABS: Apearance,Urine Slightly Hazy (Clear); Bacteria,Urine Occasional /HPF (Few); Bilirubin,Urine Negative (Negative); Blood, Urine Small mg/dL (Negative); Glucose,Urine (UA) Negative (Negative); Ketones,Urine Negative (Negative); Nitrite,Urine Positive (Negative); Protein,Urine Negative; RBC,Urine 2 /HPF (0-4); Renal Epithelial Cells,Urine Few /HPF (<1); Squamous Epithelial Cell,Urine Occasional /HPF (0-10); Urine Color Yellow (Yellow); Urine Specific Gravity 1.012 (1.001-1.035); WBC,Urine 4 /HPF (0-6)
[2017-11-06 23:52] LABS: Barbiturates Screen,Urine Negative (Negative); Benzodiazepines Screen,Urine Negative (Negative); Cannabinoid Screen,Urine Positive (Negative); Opiate Screen,Urine Negative (Negative); Phencyclidine Screen,Urine Negative (Negative)
[2017-11-07] MEDS: NITROGLYCERIN 2% OINT 1 INCH/GM PACK TOP SCH ×3 (00:46→18:27)
[2017-11-07] MEDS ORDERED: HydrOXYzine PAMOATE 25 MG CAPSULE PO PRN (01:05)
[2017-11-07] MEDS: LISINOPRIL/HCTZ 10-12.5 MG TABLET PO SCH (08:25)
[2017-11-07] MEDS ORDERED: clonazePAM 0.5 MG TABLET PO SCH (09:00)
[2017-11-07] MEDS ORDERED: METOPROLOL SUCCINATE XL 25 MG TABLET PO SCH (09:00)
[2017-11-07] MEDS ORDERED: ISOSORBIDE MONONITRATE 30 MG TABLET PO SCH (09:00)
[2017-11-07] MEDS: SULFAMETHOX/TRIMETHOPRIM 800-160 MG TABLET PO SCH ×2 (09:21→21:09)
[2017-11-07] MEDS: DULoxetine 20 MG CAPSULE PO SCH (09:21)
[2017-11-07] MEDS: GABAPENTIN 300 MG CAPSULE PO SCH ×2 (09:21→18:25)
[2017-11-07] MEDS: PANTOPRAZOLE 40 MG TABLET PO SCH ×2 (09:22→21:09)
[2017-11-07] MEDS: ASPIRIN EC 325 MG TABLET PO SCH (09:22)
[2017-11-07] MEDS: ISOSORBIDE MONONITRATE 30 MG TABLET PO SCH (16:44)
[2017-11-07] MEDS ORDERED: DILTIAZEM CD 120 MG CAPSULE PO SCH (21:00)
[2017-11-07] MEDS ORDERED: SIMVASTATIN 20 MG TABLET PO SCH (21:00)
[2017-11-07] MEDS ORDERED: ENOXAPARIN 40 MG/0.4 ML SYRINGE SUBCUT SCH (21:00)
[2017-11-08] MEDS: ISOSORBIDE MONONITRATE 30 MG TABLET PO SCH (09:32)
[2017-11-08] MEDS: SULFAMETHOX/TRIMETHOPRIM 800-160 MG TABLET PO SCH (09:32)
[2017-11-08] MEDS: ASPIRIN EC 325 MG TABLET PO SCH (09:33)
[2017-11-08] MEDS: DULoxetine 20 MG CAPSULE PO SCH (09:33)
[2017-11-08] MEDS: PANTOPRAZOLE 40 MG TABLET PO SCH (09:33)
[2017-11-08] MEDS: LISINOPRIL/HCTZ 10-12.5 MG TABLET PO SCH (09:33)
[2017-11-08 12:05] VITALS: BP 118/80
== END 2017-11-08 11:44 | disposition home or self-care (01) ==
LOC: N.EDINP 19:59 → N.ED 19:59 → N.CC 23:54 → N.TELEN 11-07 18:06
PROVIDERS: ADMIT Internal Medicine; ATTEND Internal Medicine

== ENCOUNTER 2018-07-02 17:50 | Observation (INO) ==
[2018-07-02] MEDS ORDERED: SODIUM CHLORIDE 0.9% 1,000 ML IV STA (18:24)
[2018-07-02 18:47] LABS: Basophils % 0.2 % (0.0-0.8); Eosinophils # 0.3 10*3/uL (0.0-0.87); Eosinophils % 5.8 % (0.00-10.9); Hematocrit 42.2 VOL% (35.7-47.0); Hemoglobin 14.2 GM/DL (12.0-16.0); Immature Granulocytes % 0.6 %; Immature Granulocytes Absolute 0.03 #; Lymphocytes # 0.8 10*3/uL (1.4-4.0); Lymphocytes % 15.1 % (21.3-54.2); Mean Corpuscular HGB Conc 33.6 GM/DL (32-36); Mean Corpuscular Volume 88.7 FL (87-102); Monocytes % 10.5 % (1.7-12.7); Neutrophils % 67.8 % (38.7-73.9); Platelet Count 122 T/CUMM (130-400); Red Blood Count 4.76 MC/CUMM (3.8-5.5); Red Cell Distribution Width 12.8 % (9.3-17.3)
[2018-07-02 19:02] LABS: Apearance,Urine Slightly Hazy (Clear); Bacteria,Urine Many /HPF (Few); Bilirubin,Urine Small mg/dL (Negative); Blood, Urine Small mg/dL (Negative); Glucose,Urine (UA) Negative (Negative); Ketones,Urine Negative (Negative); Mucus,Urine Occasional /LPF (Occasional); Nitrite,Urine Positive (Negative); Protein,Urine 30 MG/DL; RBC,Urine 2 /HPF (0-4); Squamous Epithelial Cell,Urine Moderate /HPF (0-10); Urine Color Amber (Yellow); Urine Specific Gravity 1.026 (1.001-1.035); WBC,Urine 5 /HPF (0-6)
[2018-07-02 19:07] LABS: Alanine Aminotransferase 62 U/L (13-56); Albumin 3.1 G/DL (3.4-5.0); Alkaline Phosphatase 161 U/L (45-117); Aspartate Amino Transferase 71 U/L (0-37); Blood Urea Nitrogen 14 MG/DL (7-18); Calcium 8.8 MG/DL (8.5-10.1); Glucose 132 MG/DL (74-106); Osmolality,Calculated 281.4 MOS/KG (273-304); Total Protein 7.3 G/DL (6.4-8.3)
[2018-07-02] MEDS ORDERED: POTASSIUM CHLORIDE 20 MEQ TABLET PO STA (19:15)
[2018-07-02] MEDS ORDERED: LEVOFLOXACIN INJ 500 MG in PREMIX 1 EACH IV STA (19:38)
[2018-07-02] MEDS ORDERED: LEVOFLOXACIN INJ 100 ML IV ONE (19:47)
[2018-07-02] MEDS ORDERED: cefTRIAXone 1,000 MG in SYRINGE 1 EACH IV SCH (20:00)
[2018-07-02 21:33] LABS: Albumin 2.8 G/DL (3.4-5.0); Bilirubin,Direct 0.17 MG/DL (0.0-0.20); Bilirubin,Indirect 0.2 MG/DL (0.0-1.0); Bilirubin,Total 0.4 MG/DL (0.2-1.0)
[2018-07-02] MEDS ORDERED: ALBUTEROL 2.5 MG/3 ML NEB RESP TX PRN (21:43)
[2018-07-02] MEDS ORDERED: ACETAMINOPHEN 325 MG TABLET PO PRN (21:51)
[2018-07-02] MEDS ORDERED: ONDANSETRON 4 MG/2 ML VIAL IV PRN (21:51)
[2018-07-02] MEDS ORDERED: HydrOXYzine PAMOATE 25 MG CAPSULE PO PRN (21:53)
[2018-07-02] MEDS ORDERED: tiZANidine 4 MG TABLET PO PRN (21:53)
[2018-07-02] MEDS ORDERED: QUEtiapine 25 MG TABLET PO PRN (21:53)
[2018-07-02] MEDS: ENOXAPARIN 40 MG/0.4 ML SYRINGE SUBCUT SCH (22:32)
[2018-07-02] MEDS: SODIUM CHLORIDE 0.9% 1,000 ML IV SCH (22:32)
[2018-07-02] MEDS: INDOMETHACIN 25 MG CAPSULE PO SCH (22:40)
[2018-07-02] MEDS: SIMVASTATIN 20 MG TABLET PO SCH (22:41)
[2018-07-02 23:00] LABS: Hepatitis B Core IgM Quant < 0.05 Index; Hepatitis B Surface Ag Quant < 0.10 Index; Hepatitis B Surface Ag Result Negative (Negative); Hepatitis C Virus Ab Quant 0.06 Index; Hepatitis C Virus Ab Result Negative (Negative)
[2018-07-03] MEDS: ALBUTEROL/IPRATROPIUM 3 ML NEB RESP TX SCH ×4 (01:57→20:05)
[2018-07-03 05:39] LABS: Basophils % 0.6 % (0.0-0.8); Eosinophils # 0.2 10*3/uL (0.0-0.87); Eosinophils % 4.7 % (0.00-10.9); Hematocrit 37.1 VOL% (35.7-47.0); Hemoglobin 12.1 GM/DL (12.0-16.0); Immature Granulocytes % 0.6 %; Immature Granulocytes Absolute 0.02 #; Lymphocytes # 1.4 10*3/uL (1.4-4.0); Lymphocytes % 41.2 % (21.3-54.2); Mean Corpuscular HGB Conc 32.6 GM/DL (32-36); Mean Platelet Volume 12.7 FL (9.6-12.0); Monocytes % 12.3 % (1.7-12.7); Neutrophils % 40.6 % (38.7-73.9); Platelet Count 107 T/CUMM (130-400); Red Blood Count 4.12 MC/CUMM (3.8-5.5); Red Cell Distribution Width 12.8 % (9.3-17.3); White Blood Count 3.4 T/CUMM (4-12)
[2018-07-03 06:01] LABS: Platelet Estimate Adequate
[2018-07-03 06:02] LABS: Anisocytosis Slight; Macrocytosis 1+
[2018-07-03 06:05] LABS: Albumin 2.6 G/DL (3.4-5.0); Bilirubin,Total 0.4 MG/DL (0.2-1.0); Calcium 7.9 MG/DL (8.5-10.1); Total Protein 6.2 G/DL (6.4-8.3)
[2018-07-03] MEDS: POTASSIUM CHLORIDE 20 MEQ TABLET PO PRN ×3 (06:33→10:47)
[2018-07-03] MEDS ORDERED: MAGNESIUM SULF RIDER 2 GM in PREMIX 1 EACH IV ONE (07:26)
[2018-07-03 07:37] LABS: Risk Ratio 3.86
[2018-07-03] MEDS: SODIUM CHLORIDE 0.9% 1,000 ML IV SCH ×2 (07:55→20:05)
[2018-07-03] MEDS: INDOMETHACIN 25 MG CAPSULE PO SCH ×2 (08:45→20:04)
[2018-07-03] MEDS: LISINOPRIL/HCTZ 20-12.5 MG TABLET PO SCH (08:45)
[2018-07-03] MEDS: ISOSORBIDE MONONITRATE 30 MG TABLET PO SCH (08:46)
[2018-07-03] MEDS: ASPIRIN EC 81 MG TABLET PO SCH (08:46)
[2018-07-03] MEDS: GABAPENTIN 600 MG TABLET PO SCH ×3 (08:46→20:04)
[2018-07-03] MEDS: FLUoxetine 20 MG CAPSULE PO SCH (08:46)
[2018-07-03] MEDS ORDERED: LEVOFLOXACIN INJ 750 MG in PREMIX 1 EACH IV SCH (19:30)
[2018-07-03] MEDS ORDERED: diphenhydrAMINE CAP 25 MG CAPSULE PO PRN (19:52)
[2018-07-03] MEDS: SIMVASTATIN 20 MG TABLET PO SCH (20:04)
[2018-07-03] MEDS: ENOXAPARIN 40 MG/0.4 ML SYRINGE SUBCUT SCH (21:21)
[2018-07-04] MEDS: ALBUTEROL/IPRATROPIUM 3 ML NEB RESP TX SCH ×3 (01:40→13:37)
[2018-07-04 05:44] LABS: Basophils % 0.4 % (0.0-0.8); Eosinophils # 0.4 10*3/uL (0.0-0.87); Hematocrit 35.9 VOL% (35.7-47.0); Hemoglobin 11.6 GM/DL (12.0-16.0); Immature Granulocytes % 0.6 %; Immature Granulocytes Absolute 0.03 #; Lymphocytes % 40.5 % (21.3-54.2); Mean Corpuscular HGB Conc 32.3 GM/DL (32-36); Mean Corpuscular Volume 90.7 FL (87-102); Mean Platelet Volume 12.1 FL (9.6-12.0); Neutrophils % 40.5 % (38.7-73.9); Platelet Count 106 T/CUMM (130-400); Red Blood Count 3.96 MC/CUMM (3.8-5.5); Red Cell Distribution Width 12.7 % (9.3-17.3); White Blood Count 4.9 T/CUMM (4-12)
[2018-07-04 06:07] LABS: Hypochromasia 1+; Platelet Estimate Normal
[2018-07-04 07:49] LABS: Osmolality,Calculated 289.4 MOS/KG (273-304)
[2018-07-04] MEDS: ISOSORBIDE MONONITRATE 30 MG TABLET PO SCH (09:24)
[2018-07-04] MEDS: FLUoxetine 20 MG CAPSULE PO SCH (09:24)
[2018-07-04] MEDS: INDOMETHACIN 25 MG CAPSULE PO SCH (09:24)
[2018-07-04] MEDS: LISINOPRIL/HCTZ 20-12.5 MG TABLET PO SCH (09:24)
[2018-07-04] MEDS: SODIUM CHLORIDE 0.9% 1,000 ML IV SCH ×2 (09:24→15:10)
[2018-07-04] MEDS: ASPIRIN EC 81 MG TABLET PO SCH (09:24)
[2018-07-04] MEDS: GABAPENTIN 600 MG TABLET PO SCH ×2 (09:24→15:30)
[2018-07-04 11:27] VITALS: BP 108/60
== END 2018-07-04 16:04 | disposition home or self-care (01) ==
LOC: N.EDINP 17:50 → N.ED 17:50 → N.5E 21:27

== ENCOUNTER 2018-08-17 08:37 | Observation (INO) ==
[2018-08-17] MEDS ORDERED: NITROGLYCERIN 2% OINT 1 INCH/GM PACK TOP STA (08:59)
[2018-08-17] MEDS ORDERED: ENOXAPARIN 100 MG/ML SYRINGE SUBCUT STA (08:59)
[2018-08-17] MEDS ORDERED: NITROGLYCERIN SL 0.4 MG TABLET SL PRN (08:59)
[2018-08-17] MEDS ORDERED: ASPIRIN 325 MG TABLET PO STA (08:59)
[2018-08-17 09:11] LABS: Basophils # 0.1 10*3/uL (0.0-0.2); Basophils % 0.6 % (0.0-0.8); Eosinophils # 0.4 10*3/uL (0.0-0.87); Eosinophils % 4.6 % (0.00-10.9); Hematocrit 44.1 VOL% (35.7-47.0); Immature Granulocytes % 0.8 %; Immature Granulocytes Absolute 0.06 #; Lymphocytes # 2.7 10*3/uL (1.4-4.0); Mean Corpuscular HGB Conc 31.7 GM/DL (32-36); Mean Corpuscular Volume 91.7 FL (87-102); Mean Platelet Volume 11.7 FL (9.6-12.0); Monocytes % 7.2 % (1.7-12.7); Neutrophils % 52.8 % (38.7-73.9); Platelet Count 176 T/CUMM (130-400); Red Blood Count 4.81 MC/CUMM (3.8-5.5); Red Cell Distribution Width 13.8 % (9.3-17.3); White Blood Count 7.9 T/CUMM (4-12)
[2018-08-17 09:19] LABS: Amorphous Crystals,Urine Few /HPF (Few); Apearance,Urine CLOUDY (Clear); Bacteria,Urine Occasional /HPF (Few); Bilirubin,Urine Negative (Negative); Blood, Urine Negative (Negative); Glucose,Urine (UA) Negative (Negative); Ketones,Urine Negative (Negative); Nitrite,Urine Negative (Negative); Protein,Urine Negative; RBC,Urine 1 /HPF (0-4); Squamous Epithelial Cell,Urine Many /HPF (0-10); Urine Color Yellow (Yellow); Urine Specific Gravity 1.008 (1.001-1.035); Urine Urobilinogen < 2.0 EU/DL (0.2-1.0); WBC,Urine 3 /HPF (0-6)
[2018-08-17 09:22] LABS: Barbiturates Screen,Urine Negative (Negative); Benzodiazepines Screen,Urine Negative (Negative); Cannabinoid Screen,Urine Positive (Negative); Opiate Screen,Urine Negative (Negative); Phencyclidine Screen,Urine Negative (Negative)
[2018-08-17 09:37] LABS: Calcium 9.3 MG/DL (8.5-10.1); Osmolality,Calculated 284.8 MOS/KG (273-304)
[2018-08-17] MEDS ORDERED: LACTULOSE 20 GM/30 ML UDCUP PO PRN (12:00)
[2018-08-17] MEDS ORDERED: ONDANSETRON 4 MG/2 ML VIAL IV PRN (12:00)
[2018-08-17 12:31] LABS: Risk Ratio 4.08; Thyroid Stimulating Hormone 6.55 uIU/ml (0.358-3.74); VLDL CHOLESTEROL 47.2 MG/DL
[2018-08-17] MEDS: ENOXAPARIN 40 MG/0.4 ML SYRINGE SUBCUT SCH (14:10)
[2018-08-18 05:50] LABS: Basophils % 0.3 % (0.0-0.8); Eosinophils # 0.3 10*3/uL (0.0-0.87); Eosinophils % 3.9 % (0.00-10.9); Hemoglobin 13.1 GM/DL (12.0-16.0); Immature Granulocytes % 0.8 %; Immature Granulocytes Absolute 0.05 #; Lymphocytes # 2.4 10*3/uL (1.4-4.0); Lymphocytes % 37.3 % (21.3-54.2); Mean Corpuscular Volume 92.3 FL (87-102); Mean Platelet Volume 12.4 FL (9.6-12.0); Monocytes % 9.7 % (1.7-12.7); Platelet Count 145 T/CUMM (130-400); Red Blood Count 4.44 MC/CUMM (3.8-5.5); Red Cell Distribution Width 13.9 % (9.3-17.3); White Blood Count 6.4 T/CUMM (4-12)
[2018-08-18 06:08] LABS: Calcium 8.8 MG/DL (8.5-10.1); Osmolality,Calculated 288.7 MOS/KG (273-304)
[2018-08-18] MEDS ORDERED: HydrOXYzine PAMOATE 25 MG CAPSULE PO PRN (07:47)
[2018-08-18] MEDS ORDERED: QUEtiapine 100 MG TABLET PO PRN (07:47)
[2018-08-18] MEDS ORDERED: NITROGLYCERIN 2% OINT 1 INCH/GM PACK TOP ONE (08:33)
[2018-08-18] MEDS: ENOXAPARIN 40 MG/0.4 ML SYRINGE SUBCUT SCH (09:14)
[2018-08-18] MEDS: ISOSORBIDE MONONITRATE 30 MG TABLET PO SCH (09:15)
[2018-08-18] MEDS: FLUoxetine 20 MG CAPSULE PO SCH (09:15)
[2018-08-18] MEDS: GABAPENTIN 600 MG TABLET PO SCH ×3 (09:15→21:23)
[2018-08-18] MEDS: LISINOPRIL/HCTZ 20-12.5 MG TABLET PO SCH (09:16)
[2018-08-18] MEDS: ASPIRIN EC 81 MG TABLET PO SCH (09:16)
[2018-08-18] MEDS ORDERED: MAGNESIUM SULF RIDER 2 GM in PREMIX 1 EACH IV PRN (10:02)
[2018-08-18] MEDS ORDERED: DIAZEPAM 5 MG TABLET PO ONE (11:00)
[2018-08-18] MEDS ORDERED: diphenhydrAMINE CAP 25 MG CAPSULE PO ONE (11:00)
[2018-08-18] MEDS: ACETAMINOPHEN 325 MG TABLET PO PRN ×2 (11:46→15:41)
[2018-08-18] MEDS: SODIUM CHLORIDE 0.45% 1,000 ML IV SCH ×2 (15:45→21:23)
[2018-08-18] MEDS ORDERED: HEPARIN/NACL 0.9% 2 UNITS/ML 1,000 ML IV ONE (17:53)
[2018-08-18] MEDS ORDERED: SODIUM BICARBONATE 2.4 MEQ/5 ML VIAL ONE (18:34)
[2018-08-18] MEDS ORDERED: LIDOCAINE 1% 20 ML VIAL ONE (18:34)
[2018-08-18] MEDS ORDERED: MIDAZOLAM 2 MG/2 ML VIAL ONE (18:34)
[2018-08-18] MEDS ORDERED: fentaNYL 100 MCG/2 ML VIAL ONE (18:34)
[2018-08-18] MEDS ORDERED: BIVALIRUDIN 250 MG VIAL IV ONE (19:05)
[2018-08-18] MEDS ORDERED: TICAGRELOR 90 MG TABLET ONE (19:36)
[2018-08-18] MEDS ORDERED: HEPARIN/NACL 0.9% 2 UNITS/ML 500 ML IV ONE (19:48)
[2018-08-18] MEDS ORDERED: MORPHINE 4 MG/1 ML VIAL IV PRN (19:59)
[2018-08-18] MEDS ORDERED: ATORVASTATIN 20 MG TABLET PO SCH (21:00)
[2018-08-18] MEDS ORDERED: SIMVASTATIN 40 MG TABLET PO SCH (21:00)
[2018-08-18] MEDS ORDERED: SIMVASTATIN 20 MG TABLET PO SCH (21:00)
[2018-08-18] MEDS: METOPROLOL TARTRATE 25 MG TABLET PO SCH ×2 (21:23→21:29)
[2018-08-18] MEDS: TICAGRELOR 90 MG TABLET PO SCH (21:23)
[2018-08-19] MEDS: SODIUM CHLORIDE 0.45% 1,000 ML IV SCH ×3 (03:13→10:42)
[2018-08-19 04:23] LABS: Basophils % 0.3 % (0.0-0.8); Eosinophils # 0.2 10*3/uL (0.0-0.87); Eosinophils % 2.6 % (0.00-10.9); Hematocrit 39.6 VOL% (35.7-47.0); Hemoglobin 12.8 GM/DL (12.0-16.0); Immature Granulocytes % 0.5 %; Immature Granulocytes Absolute 0.04 #; Lymphocytes # 2.6 10*3/uL (1.4-4.0); Lymphocytes % 33.8 % (21.3-54.2); Mean Corpuscular HGB Conc 32.3 GM/DL (32-36); Mean Corpuscular Volume 91.2 FL (87-102); Mean Platelet Volume 11.9 FL (9.6-12.0); Monocytes % 7.4 % (1.7-12.7); Neutrophils % 55.4 % (38.7-73.9); Platelet Count 147 T/CUMM (130-400); Red Blood Count 4.34 MC/CUMM (3.8-5.5); White Blood Count 7.6 T/CUMM (4-12)
[2018-08-19 04:40] LABS: Calcium 8.5 MG/DL (8.5-10.1); Osmolality,Calculated 281.3 MOS/KG (273-304)
[2018-08-19] MEDS ORDERED: PANTOPRAZOLE 40 MG TABLET PO SCH (09:00)
[2018-08-19] MEDS: ASPIRIN EC 81 MG TABLET PO SCH (09:11)
[2018-08-19] MEDS: METOPROLOL TARTRATE 25 MG TABLET PO SCH (09:11)
[2018-08-19] MEDS: LISINOPRIL/HCTZ 20-12.5 MG TABLET PO SCH (09:11)
[2018-08-19] MEDS: GABAPENTIN 600 MG TABLET PO SCH (09:11)
[2018-08-19] MEDS: ENOXAPARIN 40 MG/0.4 ML SYRINGE SUBCUT SCH (09:11)
[2018-08-19] MEDS: TICAGRELOR 90 MG TABLET PO SCH (09:11)
[2018-08-19] MEDS: ISOSORBIDE MONONITRATE 30 MG TABLET PO SCH (09:11)
[2018-08-19] MEDS: FLUoxetine 20 MG CAPSULE PO SCH (09:11)
[2018-08-19] MEDS: POTASSIUM CHLORIDE RIDER 10 MEQ in PREMIX 1 EACH IV PRN ×2 (09:14→11:43)
[2018-08-19 12:00] VITALS: BP 139/84
== END 2018-08-19 12:10 | disposition home or self-care (01) ==
LOC: EDUNIT# → EDBD → N.ED 08:37 → N.EDINP 08:37 → N.2E 13:14 → N.TELEN 08-18 20:06
PROVIDERS: ADMIT Internal Medicine; ATTEND Internal Medicine
PROC: CLCCHCL (ICD-10-PCS; 2018-08-18 19:15)

== ENCOUNTER 2018-08-22 13:22 | Observation (INO) ==
[2018-08-22] MEDS ORDERED: ONDANSETRON 4 MG/2 ML VIAL IV STA (13:47)
[2018-08-22] MEDS ORDERED: NITROGLYCERIN 2% OINT 1 INCH/GM PACK TOP STA (13:47)
[2018-08-22] MEDS ORDERED: ASPIRIN 325 MG TABLET PO STA (13:47)
[2018-08-22] MEDS ORDERED: ALUM/MAG/SIMETH/LIDO VISC 1:1 30 ML BOTTLE PO STA (13:47)
[2018-08-22] MEDS ORDERED: MORPHINE 4 MG/1 ML VIAL IV STA (13:47)
[2018-08-22] MEDS ORDERED: DOCUSATE SODIUM 100 MG CAPSULE PO PRN (14:33)
[2018-08-22] MEDS ORDERED: MAGNESIUM SULF RIDER 2 GM in PREMIX 1 EACH IV PRN (14:33)
[2018-08-22] MEDS ORDERED: MAGNESIUM SULF RIDER 4 GM in PREMIX 1 EACH IV PRN (14:33)
[2018-08-22] MEDS ORDERED: ONDANSETRON 4 MG/2 ML VIAL IV PRN (14:33)
[2018-08-22] MEDS ORDERED: ACETAMINOPHEN 325 MG TABLET PO PRN (14:33)
[2018-08-22] MEDS ORDERED: QUEtiapine 100 MG TABLET PO PRN (14:35)
[2018-08-22] MEDS ORDERED: MORPHINE 4 MG/1 ML VIAL IV PRN (14:37)
[2018-08-22] MEDS ORDERED: NITROGLYCERIN SL 0.4 MG TABLET SL PRN (14:37)
[2018-08-22 14:47] LABS: Albumin 3.9 G/DL (3.4-5.0); Bilirubin,Total 0.5 MG/DL (0.2-1.0); Calcium 9.5 MG/DL (8.5-10.1); Osmolality,Calculated 284.1 MOS/KG (273-304); Total Protein 7.7 G/DL (6.4-8.3)
[2018-08-22 14:51] LABS: Basophils % 0.5 % (0.0-0.8); Eosinophils # 0.4 10*3/uL (0.0-0.87); Hematocrit 42.2 VOL% (35.7-47.0); Hemoglobin 13.9 GM/DL (12.0-16.0); Immature Granulocytes % 0.8 %; Immature Granulocytes Absolute 0.07 #; Lymphocytes # 2.9 10*3/uL (1.4-4.0); Lymphocytes % 32.9 % (21.3-54.2); Mean Corpuscular HGB Conc 32.9 GM/DL (32-36); Mean Corpuscular Volume 90.6 FL (87-102); Mean Platelet Volume 12.5 FL (9.6-12.0); Monocytes % 8.3 % (1.7-12.7); Neutrophils % 52.5 % (38.7-73.9); Platelet Count 177 T/CUMM (130-400); Red Blood Count 4.66 MC/CUMM (3.8-5.5); Red Cell Distribution Width 14.2 % (9.3-17.3); White Blood Count 8.7 T/CUMM (4-12)
[2018-08-22 15:11] LABS: INR 0.9
[2018-08-22] MEDS: ENOXAPARIN 80 MG/0.8 ML SYRINGE SUBCUT SCH (16:28)
[2018-08-22] MEDS: GABAPENTIN 600 MG TABLET PO SCH ×2 (16:28→21:21)
[2018-08-22] MEDS: ISOSORBIDE MONONITRATE 30 MG TABLET PO SCH (16:28)
[2018-08-22] MEDS ORDERED: METOPROLOL TARTRATE 25 MG TABLET PO SCH (21:00)
[2018-08-22] MEDS: ZALEPLON 5 MG CAPSULE PO PRN (21:21)
[2018-08-22] MEDS: SIMVASTATIN 20 MG TABLET PO SCH (21:22)
[2018-08-22] MEDS: TICAGRELOR 90 MG TABLET PO SCH (21:22)
[2018-08-22] MEDS: HydrOXYzine PAMOATE 25 MG CAPSULE PO PRN (21:22)
[2018-08-22] MEDS: METOPROLOL TARTRATE 25 MG TABLET PO SCH (21:24)
[2018-08-23] MEDS: ENOXAPARIN 80 MG/0.8 ML SYRINGE SUBCUT SCH ×2 (05:35→15:41)
[2018-08-23 07:20] LABS: Amorphous Crystals,Urine Occasional /HPF (Few); Apearance,Urine Slightly Hazy (Clear); Bacteria,Urine Occasional /HPF (Few); Bilirubin,Urine Negative (Negative); Blood, Urine Negative (Negative); Glucose,Urine (UA) Negative (Negative); Ketones,Urine Negative (Negative); Mucus,Urine Occasional /LPF (Occasional); Nitrite,Urine Positive (Negative); Protein,Urine Negative; RBC,Urine 4 /HPF (0-4); Squamous Epithelial Cell,Urine Occasional /HPF (0-10); Urine Color Yellow (Yellow); Urine Specific Gravity 1.015 (1.001-1.035); Urine Urobilinogen < 2.0 EU/DL (0.2-1.0); WBC,Urine 77 /HPF (0-6)
[2018-08-23 07:22] LABS: Barbiturates Screen,Urine Negative (Negative); Benzodiazepines Screen,Urine Negative (Negative); Cannabinoid Screen,Urine Positive (Negative); Opiate Screen,Urine Positive (Negative); Phencyclidine Screen,Urine Negative (Negative)
[2018-08-23] MEDS: GABAPENTIN 600 MG TABLET PO SCH ×3 (08:52→20:26)
[2018-08-23] MEDS: NICOTINE 21 MG/24 HR PATCH TRANSDERM PRN (08:52)
[2018-08-23] MEDS: ISOSORBIDE MONONITRATE 30 MG TABLET PO SCH (08:53)
[2018-08-23] MEDS: METOPROLOL TARTRATE 25 MG TABLET PO SCH (08:53)
[2018-08-23] MEDS: PANTOPRAZOLE 40 MG TABLET PO SCH (08:53)
[2018-08-23] MEDS: LISINOPRIL/HCTZ 20-12.5 MG TABLET PO SCH (08:53)
[2018-08-23] MEDS: ASPIRIN EC 81 MG TABLET PO SCH (08:53)
[2018-08-23] MEDS: TICAGRELOR 90 MG TABLET PO SCH ×2 (08:53→20:26)
[2018-08-23] MEDS: FLUoxetine 20 MG CAPSULE PO SCH (08:53)
[2018-08-23] MEDS: LEVOFLOXACIN 250 MG TABLET PO SCH (11:18)
[2018-08-23] MEDS: RANOLAZINE 500 MG TABLET PO SCH ×2 (11:18→20:26)
[2018-08-23] MEDS: HydrOXYzine PAMOATE 25 MG CAPSULE PO PRN (20:26)
[2018-08-23] MEDS: SIMVASTATIN 20 MG TABLET PO SCH (20:26)
[2018-08-23] MEDS: ZALEPLON 5 MG CAPSULE PO PRN (20:26)
[2018-08-24] MEDS ORDERED: ENOXAPARIN 40 MG/0.4 ML SYRINGE SUBCUT SCH (09:00)
[2018-08-24] MEDS: ASPIRIN EC 81 MG TABLET PO SCH (09:23)
[2018-08-24] MEDS: NICOTINE 21 MG/24 HR PATCH TRANSDERM PRN (09:23)
[2018-08-24] MEDS: TICAGRELOR 90 MG TABLET PO SCH ×2 (09:23→20:39)
[2018-08-24] MEDS: PANTOPRAZOLE 40 MG TABLET PO SCH (09:23)
[2018-08-24] MEDS: LISINOPRIL/HCTZ 20-12.5 MG TABLET PO SCH (09:23)
[2018-08-24] MEDS: FLUoxetine 20 MG CAPSULE PO SCH (09:23)
[2018-08-24] MEDS: RANOLAZINE 500 MG TABLET PO SCH ×2 (09:23→20:39)
[2018-08-24] MEDS: ISOSORBIDE MONONITRATE 30 MG TABLET PO SCH (09:23)
[2018-08-24] MEDS: GABAPENTIN 600 MG TABLET PO SCH ×3 (09:23→20:39)
[2018-08-24] MEDS ORDERED: MIDAZOLAM 2 MG/2 ML VIAL ONE ×3 (10:02→10:48)
[2018-08-24] MEDS ORDERED: LIDOCAINE 1% 20 ML VIAL ONE (10:02)
[2018-08-24] MEDS ORDERED: HEPARIN/NACL 0.9% 2 UNITS/ML 1,000 ML IV ONE (10:02)
[2018-08-24] MEDS ORDERED: fentaNYL 100 MCG/2 ML VIAL ONE (10:03)
[2018-08-24] MEDS ORDERED: VERAPAMIL 5 MG/2 ML VIAL ONE (10:03)
[2018-08-24] MEDS ORDERED: NITROGLYCERIN DRIP 50 MG/250 ML BOTTLE IV ONE (10:03)
[2018-08-24] MEDS ORDERED: diphenhydrAMINE CAP 25 MG CAPSULE PO ONE (10:04)
[2018-08-24] MEDS ORDERED: DIAZEPAM 5 MG TABLET PO ONE ×2 (10:04)
[2018-08-24] MEDS ORDERED: diphenhydrAMINE CAP 50 MG CAPSULE PO ONE (10:04)
[2018-08-24] MEDS ORDERED: diphenhydrAMINE CAP 50 MG CAPSULE ONE (10:05)
[2018-08-24] MEDS ORDERED: DIAZEPAM 5 MG TABLET ONE (10:06)
[2018-08-24] MEDS: SODIUM CHLORIDE 0.9% 1,000 ML IV SCH ×3 (10:14→18:14)
[2018-08-24] MEDS ORDERED: ENOXAPARIN 60 MG/0.6 ML SYRINGE ONE (10:32)
[2018-08-24] MEDS ORDERED: HEPARIN/NACL 0.9% 2 UNITS/ML 500 ML IV ONE (10:51)
[2018-08-24] MEDS ORDERED: TICAGRELOR 90 MG TABLET ONE (11:10)
[2018-08-24] MEDS: LEVOFLOXACIN 250 MG TABLET PO SCH (12:31)
[2018-08-24] MEDS: SIMVASTATIN 20 MG TABLET PO SCH (20:39)
[2018-08-25] MEDS: SODIUM CHLORIDE 0.9% 1,000 ML IV SCH (01:25)
[2018-08-25 06:14] LABS: Basophils % 0.3 % (0.0-0.8); Eosinophils # 0.2 10*3/uL (0.0-0.87); Eosinophils % 3.3 % (0.00-10.9); Hematocrit 39.1 VOL% (35.7-47.0); Hemoglobin 12.7 GM/DL (12.0-16.0); Immature Granulocytes % 0.7 %; Immature Granulocytes Absolute 0.04 #; Lymphocytes # 1.9 10*3/uL (1.4-4.0); Lymphocytes % 31.8 % (21.3-54.2); Mean Corpuscular HGB Conc 32.5 GM/DL (32-36); Mean Corpuscular Volume 92.2 FL (87-102); Mean Platelet Volume 12.3 FL (9.6-12.0); Monocytes % 8.2 % (1.7-12.7); Neutrophils % 55.7 % (38.7-73.9); Platelet Count 144 T/CUMM (130-400); Red Blood Count 4.24 MC/CUMM (3.8-5.5); Red Cell Distribution Width 13.9 % (9.3-17.3); White Blood Count 6.1 T/CUMM (4-12)
[2018-08-25 06:20] LABS: Calcium 9.2 MG/DL (8.5-10.1); Osmolality,Calculated 286.7 MOS/KG (273-304)
[2018-08-25] MEDS: GABAPENTIN 600 MG TABLET PO SCH (09:10)
[2018-08-25] MEDS: LISINOPRIL/HCTZ 20-12.5 MG TABLET PO SCH (09:11)
[2018-08-25] MEDS: TICAGRELOR 90 MG TABLET PO SCH (09:11)
[2018-08-25] MEDS: ASPIRIN EC 81 MG TABLET PO SCH (09:11)
[2018-08-25] MEDS: FLUoxetine 20 MG CAPSULE PO SCH (09:11)
[2018-08-25] MEDS: ISOSORBIDE MONONITRATE 30 MG TABLET PO SCH (09:12)
[2018-08-25] MEDS: PANTOPRAZOLE 40 MG TABLET PO SCH (09:12)
[2018-08-25] MEDS: RANOLAZINE 500 MG TABLET PO SCH (09:41)
[2018-08-25] MEDS: LEVOFLOXACIN 250 MG TABLET PO SCH (11:26)
[2018-08-25 12:11] VITALS: BP 137/72
== END 2018-08-25 13:10 | disposition home or self-care (01) ==
LOC: EDBD → EDUNIT# → N.ED 13:22 → N.EDINP 13:22 → N.5E 14:56 → N.TELES 15:23
PROVIDERS: ADMIT Internal Medicine Clinical Cardiac Electrophysiology; ATTEND Internal Medicine Clinical Cardiac Electrophysiology

== ENCOUNTER 2019-02-12 11:37 | Observation (INO) ==
[2019-02-12] MEDS ORDERED: NITROGLYCERIN 2% OINT 1 INCH/GM PACK TOP STA (12:14)
[2019-02-12] MEDS ORDERED: PANTOPRAZOLE 40 MG VIAL IV STA (12:14)
[2019-02-12] MEDS ORDERED: ALUM/MAG/SIMETH/LIDO VISC 1:1 30 ML BOTTLE PO STA (12:14)
[2019-02-12] MEDS ORDERED: ASPIRIN 325 MG TABLET PO STA (12:14)
[2019-02-12] MEDS ORDERED: ONDANSETRON 4 MG/2 ML VIAL IV STA (12:14)
[2019-02-12 12:23] LABS: Basophils % 0.4 % (0.0-0.8); Eosinophils # 0.2 10*3/uL (0.0-0.87); Eosinophils % 2.5 % (0.00-10.9); Hematocrit 38.9 VOL% (35.7-47.0); Immature Granulocytes % 0.7 %; Immature Granulocytes Absolute 0.05 #; Lymphocytes # 2.1 10*3/uL (1.4-4.0); Lymphocytes % 31.3 % (21.3-54.2); Mean Corpuscular HGB Conc 33.4 GM/DL (32-36); Mean Corpuscular Volume 94.2 FL (87-102); Monocytes % 8.1 % (1.7-12.7); Platelet Count 154 T/CUMM (130-400); Red Blood Count 4.13 MC/CUMM (3.8-5.5); Red Cell Distribution Width 13.6 % (9.3-17.3); White Blood Count 6.7 T/CUMM (4-12)
[2019-02-12 12:30] LABS: INR 0.9
[2019-02-12 12:41] LABS: Albumin 3.3 G/DL (3.4-5.0); Bilirubin,Total 0.4 MG/DL (0.2-1.0); Calcium 9.5 MG/DL (8.5-10.1); Osmolality,Calculated 276.5 MOS/KG (273-304); Total Protein 6.7 G/DL (6.4-8.3)
[2019-02-12 13:01] LABS: Apearance,Urine Slightly Hazy (Clear); Bacteria,Urine Moderate /HPF (Few); Bilirubin,Urine Negative (Negative); Blood, Urine Small mg/dL (Negative); Glucose,Urine (UA) Negative (Negative); Ketones,Urine Negative (Negative); Mucus,Urine Occasional /LPF (Occasional); Nitrite,Urine Negative (Negative); Protein,Urine Negative; RBC,Urine 2 /HPF (0-4); Squamous Epithelial Cell,Urine Occasional /HPF (0-10); Urine Color Yellow (Yellow); Urine Specific Gravity 1.006 (1.001-1.035); Urine Urobilinogen < 2.0 EU/DL (0.2-1.0); WBC,Urine 9 /HPF (0-6)
[2019-02-12] MEDS ORDERED: ONDANSETRON 4 MG/2 ML VIAL IV PRN (13:34)
[2019-02-12] MEDS ORDERED: guaiFENesin/DM ER 600-30 MG TABLET PO PRN (13:34)
[2019-02-12] MEDS ORDERED: BISACODYL 5 MG TABLET PO PRN (13:34)
[2019-02-12] MEDS ORDERED: diphenhydrAMINE CAP 25 MG CAPSULE PO PRN (13:34)
[2019-02-12] MEDS ORDERED: ACETAMINOPHEN 325 MG TABLET PO PRN (13:34)
[2019-02-12] MEDS ORDERED: MORPHINE 4 MG/1 ML VIAL IV PRN (13:34)
[2019-02-12] MEDS ORDERED: NICOTINE 21 MG/24 HR PATCH TRANSDERM PRN (13:34)
[2019-02-12] MEDS ORDERED: NITROGLYCERIN SL 0.4 MG TABLET SL PRN (13:36)
[2019-02-12 13:52] LABS: Barbiturates Screen,Urine Negative (Negative); Benzodiazepines Screen,Urine Negative (Negative); Cannabinoid Screen,Urine Positive (Negative); Opiate Screen,Urine Negative (Negative); Phencyclidine Screen,Urine Negative (Negative)
[2019-02-12 14:00] LABS: Risk Ratio 2.98; VLDL CHOLESTEROL 18.6 MG/DL
[2019-02-12] MEDS ORDERED: INFLUENZA VIRUS VACCINE 0.5 ML SYRINGE IM ONE (16:13)
[2019-02-12] MEDS: PANTOPRAZOLE 40 MG TABLET PO SCH (17:44)
[2019-02-12] MEDS: ENOXAPARIN 40 MG/0.4 ML SYRINGE SUBCUT SCH (18:08)
[2019-02-12] MEDS: GABAPENTIN 600 MG TABLET PO SCH ×2 (18:08→21:07)
[2019-02-12 18:12] LABS: Troponin I < 0.015 NG/ML (0.00-0.045)
[2019-02-12] MEDS ORDERED: QUEtiapine 25 MG TABLET PO SCH (21:00)
[2019-02-12] MEDS ORDERED: LISINOPRIL/HCTZ 20-12.5 MG TABLET PO SCH (21:00)
[2019-02-12] MEDS: ISOSORBIDE MONONITRATE 30 MG TABLET PO SCH (21:07)
[2019-02-12] MEDS: SIMVASTATIN 40 MG TABLET PO SCH (21:07)
[2019-02-13] MEDS ORDERED: ALUM/MAG/SIMETH/LIDO VISC 1:1 30 ML BOTTLE PO ONE (05:54)
[2019-02-13] MEDS ORDERED: SODIUM CHLORIDE 0.9% 500 ML IV ONE (08:00)
[2019-02-13 08:44] LABS: Calcium 8.6 MG/DL (8.5-10.1); Osmolality,Calculated 288.8 MOS/KG (273-304)
[2019-02-13] MEDS: PANTOPRAZOLE 40 MG TABLET PO SCH (08:55)
[2019-02-13] MEDS: GABAPENTIN 600 MG TABLET PO SCH (08:55)
[2019-02-13] MEDS: CLOPIDOGREL 75 MG TABLET PO SCH (08:55)
[2019-02-13] MEDS: ASPIRIN EC 81 MG TABLET PO SCH (08:55)
[2019-02-13] MEDS: cefTRIAXone 1,000 MG in SYRINGE 1 EACH IV SCH (09:26)
[2019-02-13 09:34] LABS: Troponin I < 0.015 NG/ML (0.00-0.045)
[2019-02-13] MEDS ORDERED: SODIUM CHLORIDE 0.9% 1,000 ML IV ONE (10:27)
[2019-02-13] MEDS ORDERED: DIAZEPAM 5 MG TABLET PO ONE (11:27)
[2019-02-13] MEDS ORDERED: MAGNESIUM SULF RIDER 2 GM in PREMIX 1 EACH IV PRN (11:27)
[2019-02-13] MEDS ORDERED: diphenhydrAMINE CAP 25 MG CAPSULE PO ONE (11:27)
[2019-02-13] MEDS ORDERED: POTASSIUM CHLORIDE RIDER 10 MEQ in PREMIX 1 EACH IV PRN (11:27)
[2019-02-13] MEDS: GABAPENTIN 300 MG CAPSULE PO SCH ×2 (14:18→20:56)
[2019-02-13] MEDS: ENOXAPARIN 40 MG/0.4 ML SYRINGE SUBCUT SCH (14:18)
[2019-02-13] MEDS ORDERED: LIDOCAINE 1% 20 ML VIAL ONE (14:40)
[2019-02-13] MEDS ORDERED: HEPARIN/NACL 0.9% 2 UNITS/ML 1,000 ML IV ONE (14:40)
[2019-02-13] MEDS ORDERED: MIDAZOLAM 2 MG/2 ML VIAL ONE ×2 (15:04→15:26)
[2019-02-13] MEDS ORDERED: fentaNYL 100 MCG/2 ML VIAL ONE (15:04)
[2019-02-13] MEDS ORDERED: MORPHINE 4 MG/1 ML VIAL IV PRN (15:46)
[2019-02-13] MEDS ORDERED: ACETAMINOPHEN/CODEINE 300-30 MG TABLET PO PRN (15:46)
[2019-02-13 17:32] LABS: Troponin I < 0.015 NG/ML (0.00-0.045)
[2019-02-13] MEDS: SIMVASTATIN 40 MG TABLET PO SCH (20:56)
[2019-02-13] MEDS: ISOSORBIDE MONONITRATE 30 MG TABLET PO SCH (20:56)
[2019-02-14 07:04] LABS: Basophils % 0.5 % (0.0-0.8); Eosinophils # 0.1 10*3/uL (0.0-0.87); Eosinophils % 2.1 % (0.00-10.9); Hematocrit 38.1 VOL% (35.7-47.0); Hemoglobin 12.2 GM/DL (12.0-16.0); Immature Granulocytes % 0.9 %; Immature Granulocytes Absolute 0.05 #; Lymphocytes # 2.3 10*3/uL (1.4-4.0); Lymphocytes % 40.1 % (21.3-54.2); Mean Corpuscular Volume 96.2 FL (87-102); Mean Platelet Volume 11.3 FL (9.6-12.0); Monocytes % 6.8 % (1.7-12.7); Neutrophils % 49.6 % (38.7-73.9); Platelet Count 148 T/CUMM (130-400); Red Blood Count 3.96 MC/CUMM (3.8-5.5); Red Cell Distribution Width 13.6 % (9.3-17.3); White Blood Count 5.8 T/CUMM (4-12)
[2019-02-14 07:31] LABS: Calcium 8.3 MG/DL (8.5-10.1); Osmolality,Calculated 284.1 MOS/KG (273-304)
[2019-02-14] MEDS: GABAPENTIN 300 MG CAPSULE PO SCH (08:57)
[2019-02-14] MEDS: cefTRIAXone 1,000 MG in SYRINGE 1 EACH IV SCH (08:57)
[2019-02-14] MEDS: PANTOPRAZOLE 40 MG TABLET PO SCH (08:57)
[2019-02-14] MEDS: CLOPIDOGREL 75 MG TABLET PO SCH (08:57)
[2019-02-14] MEDS: ASPIRIN EC 81 MG TABLET PO SCH (08:57)
[2019-02-14 12:00] VITALS: BP 97/53
== END 2019-02-14 14:24 | disposition home or self-care (01) ==
LOC: EDBD → EDUNIT# → N.EDINP 11:37 → N.ED 11:37 → N.2E 15:54
PROVIDERS: ADMIT Internal Medicine; ATTEND Internal Medicine
PROC: CLCCHCL (ICD-10-PCS; 2019-02-13 16:15)

== ENCOUNTER 2019-11-10 18:55 | Observation (INO) ==
[2019-11-10] MEDS ORDERED: DIPH/TET/ACEL PERT BOOSTER VACCINE 0.5 ML VIAL IM ONE (19:27)
[2019-11-10] MEDS ORDERED: CLINDAMYCIN INJ 600 MG in PREMIX 1 EACH IV STA (19:41)
[2019-11-10 20:06] LABS: Basophils % 0.4 % (0.0-0.8); Eosinophils # 0.4 10*3/uL (0.0-0.87); Hemoglobin 13.9 GM/DL (12.0-16.0); Immature Granulocytes % 0.4 %; Immature Granulocytes Absolute 0.03 #; Lymphocytes # 1.5 10*3/uL (1.4-4.0); Lymphocytes % 19.5 % (21.3-54.2); Mean Corpuscular HGB Conc 33.9 GM/DL (32-36); Mean Corpuscular Volume 90.7 FL (87-102); Mean Platelet Volume 11.2 FL (9.6-12.0); Monocytes % 9.5 % (1.7-12.7); Neutrophils % 65.2 % (38.7-73.9); Platelet Count 155 T/CUMM (130-400); Red Blood Count 4.52 MC/CUMM (3.8-5.5); Red Cell Distribution Width 12.9 % (9.3-17.3); White Blood Count 7.8 T/CUMM (4-12)
[2019-11-10 20:38] LABS: Albumin 3.2 G/DL (3.4-5.0); Bilirubin,Total 0.5 MG/DL (0.2-1.0); Calcium 8.9 MG/DL (8.5-10.1); Osmolality,Calculated 265.2 MOS/KG (273-304); Total Protein 7.6 G/DL (6.4-8.3)
[2019-11-10] MEDS ORDERED: VANCOMYCIN INJ 1,000 MG in SODIUM CHLORIDE 0.9% 250 ML IV STA (20:41)
[2019-11-10] MEDS ORDERED: POTASSIUM CHLORIDE 20 MEQ TABLET PO STA (20:53)
[2019-11-10 21:14] LABS: Sedimentation Rate-Westergren 37 MM/HR (0-20)
[2019-11-10] MEDS ORDERED: DEXTROSE 50% 25 GM/50 ML VIAL IV PRN (22:15)
[2019-11-10] MEDS ORDERED: GLUCAGON 1 MG VIAL IM PRN (22:15)
[2019-11-10] MEDS ORDERED: POTASSIUM CHLORIDE RIDER 10 MEQ in PREMIX 1 EACH IV SCH (22:45)
[2019-11-11] MEDS: ISOSORBIDE MONONITRATE 60 MG TABLET PO SCH ×2 (00:55→20:02)
[2019-11-11] MEDS: SIMVASTATIN 40 MG TABLET PO SCH ×2 (00:56→20:02)
[2019-11-11] MEDS: MEROPENEM 500 MG in SODIUM CHLORIDE 0.9% 100 ML IV SCH ×4 (00:56→17:51)
[2019-11-11 05:36] LABS: Calcium 8.6 MG/DL (8.5-10.1); Osmolality,Calculated 275.5 MOS/KG (273-304)
[2019-11-11] MEDS ORDERED: ENOXAPARIN 40 MG/0.4 ML SYRINGE SUBCUT SCH (09:00)
[2019-11-11] MEDS: ASPIRIN EC 81 MG TABLET PO SCH (09:49)
[2019-11-11] MEDS: lisinopriL 10 MG TABLET PO SCH (09:49)
[2019-11-11] MEDS: CLOPIDOGREL 75 MG TABLET PO SCH (09:49)
[2019-11-11] MEDS: FUROSEMIDE 20 MG TABLET PO SCH (09:49)
[2019-11-11] MEDS ORDERED: POTASSIUM CHLORIDE RIDER 200 ML IV ONE (10:10)
[2019-11-11] MEDS: VANCOMYCIN INJ 1,250 MG in SODIUM CHLORIDE 0.9% 250 ML IV SCH ×2 (10:49→20:03)
[2019-11-11] MEDS ORDERED: propofoL 200 MG/20 ML VIAL IV ONE (10:50)
[2019-11-11] MEDS ORDERED: fentaNYL 100 MCG/2 ML VIAL ONE (10:51)
[2019-11-11] MEDS ORDERED: SEVOFLURANE 1 UNIT/15 MINUTE INH ONE (10:51)
[2019-11-11] MEDS ORDERED: MIDAZOLAM 2 MG/2 ML VIAL ONE (10:51)
[2019-11-11] MEDS ORDERED: ONDANSETRON 4 MG/2 ML VIAL ONE ×2 (10:51→11:03)
[2019-11-11] MEDS ORDERED: LIDOCAINE 2% 5 ML VIAL ONE (10:51)
[2019-11-11] MEDS ORDERED: HYDROmorphone 2 MG/1 ML VIAL ONE (11:03)
[2019-11-11] MEDS: HYDROmorphone 2 MG/1 ML VIAL IV PRN ×2 (11:05→11:18)
[2019-11-11] MEDS ORDERED: ONDANSETRON 4 MG/2 ML VIAL IV PRN (11:07)
[2019-11-12] MEDS: MEROPENEM 500 MG in SODIUM CHLORIDE 0.9% 100 ML IV SCH ×5 (00:08→23:59)
[2019-11-12 06:37] LABS: Basophils % 0.4 % (0.0-0.8); Eosinophils # 0.4 10*3/uL (0.0-0.87); Eosinophils % 8.3 % (0.00-10.9); Hematocrit 34.8 VOL% (35.7-47.0); Immature Granulocytes % 0.7 %; Immature Granulocytes Absolute 0.03 #; Lymphocytes # 1.3 10*3/uL (1.4-4.0); Mean Corpuscular HGB Conc 31.9 GM/DL (32-36); Mean Corpuscular Volume 96.9 FL (87-102); Mean Platelet Volume 11.2 FL (9.6-12.0); Monocytes % 10.9 % (1.7-12.7); Neutrophils % 50.7 % (38.7-73.9); Platelet Count 135 T/CUMM (130-400); Red Cell Distribution Width 12.8 % (9.3-17.3)
[2019-11-12 06:39] LABS: Hemoglobin 11.1 GM/DL (12.0-16.0); Red Blood Count 3.59 MC/CUMM (3.8-5.5); White Blood Count 4.6 T/CUMM (4-12)
[2019-11-12 06:57] LABS: Eosinophils 7 % (0-10); Lymphocytes 31 % (20-55); Segmented Neutrophils 55 % (50-85); Total Cells Counted 100
[2019-11-12 06:58] LABS: Hypochromasia 1+; Microcytosis 1+; Platelet Estimate Adequate
[2019-11-12] MEDS ORDERED: POTASSIUM CHLORIDE 20 MEQ TABLET PO ONE (07:42)
[2019-11-12 08:28] LABS: Calcium 8.4 MG/DL (8.5-10.1); Osmolality,Calculated 281.3 MOS/KG (273-304)
[2019-11-12] MEDS: CLOPIDOGREL 75 MG TABLET PO SCH (09:46)
[2019-11-12] MEDS: FUROSEMIDE 20 MG TABLET PO SCH (09:46)
[2019-11-12] MEDS: ASPIRIN EC 81 MG TABLET PO SCH (09:46)
[2019-11-12] MEDS: VANCOMYCIN INJ 1,250 MG in SODIUM CHLORIDE 0.9% 250 ML IV SCH ×2 (09:46→20:09)
[2019-11-12] MEDS: lisinopriL 10 MG TABLET PO SCH (09:47)
[2019-11-12] MEDS ORDERED: MORPHINE 4 MG/1 ML VIAL IV ONE (11:39)
[2019-11-12] MEDS: ISOSORBIDE MONONITRATE 60 MG TABLET PO SCH (20:10)
[2019-11-12] MEDS: SIMVASTATIN 40 MG TABLET PO SCH (20:10)
[2019-11-13 05:43] LABS: Calcium 8.5 MG/DL (8.5-10.1); Osmolality,Calculated 276.4 MOS/KG (273-304)
[2019-11-13] MEDS: MEROPENEM 500 MG in SODIUM CHLORIDE 0.9% 100 ML IV SCH ×2 (05:43→12:27)
[2019-11-13] MEDS: ASPIRIN EC 81 MG TABLET PO SCH (08:52)
[2019-11-13] MEDS: CLOPIDOGREL 75 MG TABLET PO SCH (08:52)
[2019-11-13] MEDS: FUROSEMIDE 20 MG TABLET PO SCH (08:52)
[2019-11-13] MEDS: VANCOMYCIN INJ 1,250 MG in SODIUM CHLORIDE 0.9% 250 ML IV SCH (08:53)
[2019-11-13] MEDS: lisinopriL 10 MG TABLET PO SCH (08:53)
[2019-11-13] MEDS ORDERED: SODIUM HYPOCHLORITE 0.25% IRRIG 473 ML BOTTLE TOP SCH (11:00)
[2019-11-13 11:43] VITALS: BP 116/63
== END 2019-11-13 14:45 | disposition home or self-care (01) ==
LOC: EDUNIT# → EDBD → N.EDINP 18:55 → N.ED 18:55 → SUATTDRO 22:13 → N.EDINP 11-11 09:32 → N.3E 11-11 09:40
PROVIDERS: ADMIT Internal Medicine; ATTEND Emergency Medicine

== ENCOUNTER 2019-11-17 12:14 | Observation (INO) ==
[2019-11-17] MEDS ORDERED: ONDANSETRON 4 MG/2 ML VIAL IV STA (15:44)
[2019-11-17] MEDS ORDERED: HYDROmorphone 2 MG/1 ML VIAL IV STA (15:44)
[2019-11-17] MEDS ORDERED: NITROGLYCERIN SL 0.4 MG TABLET SL PRN (15:45)
[2019-11-17] MEDS ORDERED: BISACODYL 10 MG SUPP RECTAL PRN (15:46)
[2019-11-17] MEDS ORDERED: ONDANSETRON 4 MG/2 ML VIAL IV PRN (15:46)
[2019-11-17] MEDS ORDERED: ALBUTEROL/IPRATROPIUM 3 ML NEB RESP TX PRN (15:46)
[2019-11-17] MEDS ORDERED: ACETAMINOPHEN 325 MG TABLET PO PRN (15:46)
[2019-11-17 16:03] LABS: Basophils # 0.1 10*3/uL (0.0-0.2); Basophils % 0.6 % (0.0-0.8); Eosinophils # 0.2 10*3/uL (0.0-0.87); Hematocrit 42.7 VOL% (35.7-47.0); Hemoglobin 14.2 GM/DL (12.0-16.0); Immature Granulocytes % 0.9 %; Immature Granulocytes Absolute 0.07 #; Lymphocytes # 3.5 10*3/uL (1.4-4.0); Lymphocytes % 43.6 % (21.3-54.2); Mean Corpuscular HGB Conc 33.3 GM/DL (32-36); Mean Corpuscular Volume 92.2 FL (87-102); Mean Platelet Volume 10.2 FL (9.6-12.0); Monocytes % 6.9 % (1.7-12.7); Platelet Count 290 T/CUMM (130-400); Red Blood Count 4.63 MC/CUMM (3.8-5.5); White Blood Count 8.1 T/CUMM (4-12)
[2019-11-17 16:07] LABS: Bilirubin,Urine Negative (Negative); Blood, Urine Negative (Negative); Glucose,Urine (UA) Negative (Negative); Ketones,Urine Negative (Negative); Mucus,Urine Occasional /LPF (Occasional); Nitrite,Urine Negative (Negative); Protein,Urine Negative; RBC,Urine 4 /HPF (0-4); Squamous Epithelial Cell,Urine Occasional /HPF (0-10); Urine Appearance CLEAR (Clear); Urine Color Yellow (Yellow); Urine Specific Gravity 1.011 (1.001-1.035); WBC,Urine 1 /HPF (0-6)
[2019-11-17 16:16] LABS: Barbiturates Screen,Urine Negative (Negative); Benzodiazepines Screen,Urine Negative (Negative); Cannabinoid Screen,Urine Positive (Negative); Opiate Screen,Urine Negative (Negative); Phencyclidine Screen,Urine Negative (Negative)
[2019-11-17 16:23] LABS: Alanine Aminotransferase 29 U/L (13-56); Albumin 3.7 G/DL (3.4-5.0); Alkaline Phosphatase 117 U/L (45-117); Aspartate Amino Transferase 30 U/L (0-37); Bilirubin,Total < 0.39 MG/DL (0.2-1.0); Blood Urea Nitrogen 8 MG/DL (7-18); Calcium 9.2 MG/DL (8.5-10.1); Estimated Glom Filtration Rate 61 ML/MIN; Glucose 87 MG/DL (74-106); Osmolality,Calculated 273.5 MOS/KG (273-304); Total Protein 8.2 G/DL (6.4-8.3)
[2019-11-17] MEDS: LACTATED RINGERS 1,000 ML IV SCH (18:48)
[2019-11-17] MEDS ORDERED: QUEtiapine 100 MG TABLET PO SCH (21:00)
[2019-11-17] MEDS: GABAPENTIN 600 MG TABLET PO SCH (21:48)
[2019-11-17] MEDS: DIVALPROEX 500 MG TABLET PO SCH (21:48)
[2019-11-17] MEDS: CYCLOBENZAPRINE 10 MG TABLET PO SCH (21:48)
[2019-11-17] MEDS: ISOSORBIDE MONONITRATE 60 MG TABLET PO SCH (21:49)
[2019-11-17] MEDS: SIMVASTATIN 40 MG TABLET PO SCH (21:49)
[2019-11-17] MEDS: VANCOMYCIN INJ 1,000 MG in SODIUM CHLORIDE 0.9% 250 ML IV SCH (21:49)
[2019-11-17] MEDS: HYDROmorphone 2 MG/1 ML VIAL IV PRN (21:50)
[2019-11-18] MEDS: FLUoxetine 20 MG CAPSULE PO SCH (08:36)
[2019-11-18] MEDS: ASPIRIN EC 81 MG TABLET PO SCH (08:36)
[2019-11-18] MEDS: DIVALPROEX 500 MG TABLET PO SCH ×2 (08:36→22:39)
[2019-11-18] MEDS: PANTOPRAZOLE 40 MG TABLET PO SCH (08:36)
[2019-11-18] MEDS: CYCLOBENZAPRINE 10 MG TABLET PO SCH ×3 (08:36→22:39)
[2019-11-18] MEDS: GABAPENTIN 600 MG TABLET PO SCH ×3 (08:36→22:39)
[2019-11-18] MEDS: lisinopriL 10 MG TABLET PO SCH (08:36)
[2019-11-18] MEDS: VANCOMYCIN INJ 1,000 MG in SODIUM CHLORIDE 0.9% 250 ML IV SCH (08:37)
[2019-11-18] MEDS: LACTATED RINGERS 1,000 ML IV SCH ×3 (08:38→23:09)
[2019-11-18] MEDS: HYDROmorphone 2 MG/1 ML VIAL IV PRN ×2 (08:52→18:30)
[2019-11-18] MEDS ORDERED: LIDOCAINE 1% 20 ML VIAL ONE (09:42)
[2019-11-18] MEDS ORDERED: PROMETHAZINE INJ 25 MG in SODIUM CHLORIDE 0.9% 50 ML IV PRN (10:41)
[2019-11-18] MEDS ORDERED: MEPERIDINE 25 MG/1 ML VIAL IV PRN (10:41)
[2019-11-18] MEDS ORDERED: diphenhydrAMINE 50 MG/1 ML VIAL IV PRN (10:41)
[2019-11-18] MEDS ORDERED: ONDANSETRON 4 MG/2 ML VIAL IV PRN (10:41)
[2019-11-18] MEDS ORDERED: MIDAZOLAM 2 MG/2 ML VIAL ONE (10:44)
[2019-11-18] MEDS ORDERED: fentaNYL 100 MCG/2 ML VIAL ONE (10:44)
[2019-11-18] MEDS ORDERED: SEVOFLURANE 1 UNIT/15 MINUTE INH ONE (10:44)
[2019-11-18] MEDS ORDERED: LIDOCAINE 2% 5 ML VIAL ONE (10:44)
[2019-11-18] MEDS ORDERED: propofoL 200 MG/20 ML VIAL IV ONE (10:44)
[2019-11-18] MEDS ORDERED: LACTATED RINGERS 1,000 ML IV ONE (14:20)
[2019-11-18] MEDS ORDERED: KETOROLAC 30 MG/1 ML VIAL IV ONE (14:20)
[2019-11-18] MEDS: KETOROLAC 15 MG/1 ML VIAL IV PRN ×2 (14:32→23:06)
[2019-11-18] MEDS: ISOSORBIDE MONONITRATE 60 MG TABLET PO SCH (22:39)
[2019-11-18] MEDS: SIMVASTATIN 40 MG TABLET PO SCH (22:39)
[2019-11-18] MEDS: LEVOFLOXACIN INJ 750 MG in PREMIX 1 EACH IV SCH ×2 (22:40)
[2019-11-19] MEDS: VANCOMYCIN INJ 1,000 MG in SODIUM CHLORIDE 0.9% 250 ML IV SCH ×3 (00:38→23:27)
[2019-11-19] MEDS: HYDROmorphone 2 MG/1 ML VIAL IV PRN ×4 (05:31→21:32)
[2019-11-19] MEDS: CYCLOBENZAPRINE 10 MG TABLET PO SCH ×3 (09:00→20:24)
[2019-11-19] MEDS: PANTOPRAZOLE 40 MG TABLET PO SCH (09:01)
[2019-11-19] MEDS: lisinopriL 10 MG TABLET PO SCH (09:01)
[2019-11-19] MEDS: FLUoxetine 20 MG CAPSULE PO SCH (09:01)
[2019-11-19] MEDS: GABAPENTIN 600 MG TABLET PO SCH ×3 (09:01→20:24)
[2019-11-19] MEDS: DIVALPROEX 500 MG TABLET PO SCH ×2 (09:01→20:24)
[2019-11-19] MEDS: ASPIRIN EC 81 MG TABLET PO SCH (09:01)
[2019-11-19] MEDS: LACTATED RINGERS 1,000 ML IV SCH (09:12)
[2019-11-19] MEDS: SODIUM HYPOCHLORITE 0.25% IRRIG 473 ML BOTTLE TOP SCH (09:12)
[2019-11-19] MEDS: ISOSORBIDE MONONITRATE 60 MG TABLET PO SCH (20:24)
[2019-11-19] MEDS: SIMVASTATIN 40 MG TABLET PO SCH (20:24)
[2019-11-19] MEDS: LEVOFLOXACIN INJ 750 MG in PREMIX 1 EACH IV SCH (20:24)
[2019-11-20] MEDS: LACTATED RINGERS 1,000 ML IV SCH ×2 (00:42→11:10)
[2019-11-20] MEDS: HYDROmorphone 2 MG/1 ML VIAL IV PRN ×2 (04:14→09:04)
[2019-11-20] MEDS: SODIUM HYPOCHLORITE 0.25% IRRIG 473 ML BOTTLE TOP SCH (09:04)
[2019-11-20] MEDS: PANTOPRAZOLE 40 MG TABLET PO SCH (09:16)
[2019-11-20] MEDS: CYCLOBENZAPRINE 10 MG TABLET PO SCH (09:16)
[2019-11-20] MEDS: GABAPENTIN 600 MG TABLET PO SCH (09:17)
[2019-11-20] MEDS: ASPIRIN EC 81 MG TABLET PO SCH (09:17)
[2019-11-20] MEDS: lisinopriL 10 MG TABLET PO SCH (09:17)
[2019-11-20] MEDS: FLUoxetine 20 MG CAPSULE PO SCH (09:17)
[2019-11-20] MEDS: DIVALPROEX 500 MG TABLET PO SCH (09:21)
[2019-11-20] MEDS: VANCOMYCIN INJ 1,000 MG in SODIUM CHLORIDE 0.9% 250 ML IV SCH (11:11)
[2019-11-20 11:33] VITALS: BP 117/76
== END 2019-11-20 15:00 | disposition home or self-care (01) ==
LOC: N.EDINP 12:14 → N.ED 12:14 → N.3E 17:45
PROVIDERS: ADMIT Surgery; ATTEND Surgery

== ENCOUNTER 2020-03-11 18:48 | Observation (INO) ==
[2020-03-11 19:30] LABS: Basophils % 0.4 % (0.0-0.8); Eosinophils # 0.2 10*3/uL (0.0-0.87); Eosinophils % 2.6 % (0.00-10.9); Hematocrit 40.2 VOL% (35.7-47.0); Hemoglobin 12.6 GM/DL (12.0-16.0); Immature Granulocytes % 0.4 %; Immature Granulocytes Absolute 0.02 #; Lymphocytes # 2.7 10*3/uL (1.4-4.0); Mean Corpuscular HGB Conc 31.3 GM/DL (32-36); Mean Corpuscular Volume 92.8 FL (87-102); Mean Platelet Volume 11.8 FL (9.6-12.0); Monocytes % 8.6 % (1.7-12.7); Platelet Count 187 T/CUMM (130-400); Red Blood Count 4.33 MC/CUMM (3.8-5.5); Red Cell Distribution Width 14.1 % (9.3-17.3); White Blood Count 5.7 T/CUMM (4-12)
[2020-03-11 19:41] LABS: Calcium 8.7 MG/DL (8.5-10.1); Osmolality,Calculated 278.5 MOS/KG (273-304); Potassium 2.8 MMOL/L (3.5-5.1)
[2020-03-11 19:54] LABS: Lymphocytes 52 % (20-55); Myelocytes 1 %; Segmented Neutrophils 41 % (50-85); Total Cells Counted 100
[2020-03-11 19:55] LABS: Platelet Estimate Normal; Reactive Lymphocytes 2+
[2020-03-11] MEDS ORDERED: POTASSIUM CHLORIDE 20 MEQ TABLET PO STA (19:55)
[2020-03-11] MEDS ORDERED: DEXTROSE 50% 25 GM/50 ML VIAL IV PRN (20:58)
[2020-03-11] MEDS ORDERED: GLUCAGON 1 MG VIAL IM PRN (20:58)
[2020-03-11] MEDS ORDERED: ONDANSETRON 4 MG/2 ML VIAL IV PRN (20:58)
[2020-03-11] MEDS ORDERED: ZALEPLON 5 MG CAPSULE PO PRN (20:58)
[2020-03-11] MEDS ORDERED: ACETAMINOPHEN 325 MG TABLET PO PRN (20:58)
[2020-03-11] MEDS ORDERED: ENOXAPARIN 40 MG/0.4 ML SYRINGE SUBCUT SCH (21:00)
[2020-03-11] MEDS ORDERED: NITROGLYCERIN SL 0.4 MG TABLET SL PRN (21:25)
[2020-03-11] MEDS ORDERED: QUEtiapine 100 MG TABLET PO SCH (21:30)
[2020-03-11] MEDS ORDERED: ISOSORBIDE MONONITRATE 30 MG TABLET PO SCH (21:30)
[2020-03-11] MEDS ORDERED: SIMVASTATIN 20 MG TABLET PO SCH (21:30)
[2020-03-11] MEDS: DIVALPROEX 500 MG TABLET PO SCH (23:30)
[2020-03-12 01:53] LABS: Risk Ratio 4.07; VLDL CHOLESTEROL 37.4 MG/DL
[2020-03-12] MEDS: DIVALPROEX 500 MG TABLET PO SCH (08:18)
[2020-03-12 08:51] LABS: Calcium 8.4 MG/DL (8.5-10.1); Osmolality,Calculated 284.1 MOS/KG (273-304); Potassium 3.6 MMOL/L (3.5-5.1)
[2020-03-12] MEDS ORDERED: DILTIAZEM CD 240 MG CAPSULE PO SCH (09:00)
[2020-03-12] MEDS ORDERED: PANTOPRAZOLE 40 MG TABLET PO SCH (09:00)
[2020-03-12] MEDS ORDERED: ASPIRIN EC 81 MG TABLET PO SCH (09:00)
[2020-03-12] MEDS ORDERED: MAGNESIUM OXIDE 400 MG TABLET PO SCH (09:00)
[2020-03-12] MEDS ORDERED: GABAPENTIN 600 MG TABLET PO SCH (09:00)
[2020-03-12] MEDS ORDERED: CLOPIDOGREL 75 MG TABLET PO SCH (09:00)
[2020-03-12] MEDS ORDERED: FUROSEMIDE 20 MG TABLET PO SCH (09:00)
[2020-03-12] MEDS ORDERED: POTASSIUM CHLORIDE 20 MEQ TABLET PO SCH (09:00)
[2020-03-12] MEDS ORDERED: KETOROLAC 30 MG/1 ML VIAL IV ONE (09:44)
[2020-03-12 12:28] VITALS: BP 110/61
[2020-03-12 13:26] LABS: Barbiturates Screen,Urine Negative (Negative); Benzodiazepines Screen,Urine Negative (Negative); Cannabinoid Screen,Urine Positive (Negative); Opiate Screen,Urine Negative (Negative); Phencyclidine Screen,Urine Negative (Negative)
== END 2020-03-12 14:23 | disposition hospice, home (50) ==
LOC: EDBD → EDUNIT# → N.ED 18:48 → N.EDINP 18:48 → SUATTDRO 20:58 → N.TELES 22:57
PROVIDERS: ADMIT Internal Medicine; ATTEND Family Medicine

== ENCOUNTER 2020-07-29 21:51 | Observation (INO) ==
[2020-07-29 22:14] LABS: Basophils % 0.3 % (0.0-0.8); Eosinophils # 0.4 10*3/uL (0.0-0.87); Eosinophils % 5.3 % (0.00-10.9); Hematocrit 42.4 VOL% (35.7-47.0); Hemoglobin 13.8 GM/DL (12.0-16.0); Immature Granulocytes % 0.3 %; Immature Granulocytes Absolute 0.02 #; Lymphocytes # 2.9 10*3/uL (1.4-4.0); Lymphocytes % 41.5 % (21.3-54.2); Mean Corpuscular HGB Conc 32.5 GM/DL (32-36); Mean Platelet Volume 11.6 FL (9.6-12.0); Monocytes % 7.7 % (1.7-12.7); Neutrophils % 44.9 % (38.7-73.9); Platelet Count 188 T/CUMM (130-400); Red Blood Count 4.71 MC/CUMM (3.8-5.5); Red Cell Distribution Width 14.3 % (9.3-17.3)
[2020-07-29 22:37] LABS: Albumin 3.7 G/DL (3.4-5.0); Bilirubin,Total 0.5 MG/DL (0.2-1.0); Calcium 8.6 MG/DL (8.5-10.1); Osmolality,Calculated 280.1 MOS/KG (273-304); Potassium 3.4 MMOL/L (3.5-5.1); Total Protein 7.3 G/DL (6.4-8.2)
[2020-07-29] MEDS ORDERED: POTASSIUM CHLORIDE 20 MEQ TABLET PO STA (23:18)
[2020-07-29] MEDS ORDERED: NITROGLYCERIN SL 0.4 MG TABLET SL STA (23:30)
[2020-07-29] MEDS ORDERED: NITROGLYCERIN SL 0.4 MG TABLET SL ONE (23:44)
[2020-07-30] MEDS ORDERED: ALBUTEROL/IPRATROPIUM 3 ML NEB RESP TX PRN (00:10)
[2020-07-30] MEDS ORDERED: POTASSIUM CHLORIDE 20 MEQ TABLET PO STA (00:13)
[2020-07-30] MEDS ORDERED: NITROGLYCERIN SL 0.4 MG TABLET SL PRN (00:16)
[2020-07-30] MEDS ORDERED: ENOXAPARIN 40 MG/0.4 ML SYRINGE SUBCUT SCH (00:30)
[2020-07-30] MEDS ORDERED: SIMVASTATIN 40 MG TABLET PO SCH (00:30)
[2020-07-30] MEDS ORDERED: MORPHINE 4 MG/1 ML VIAL IV PRN (00:45)
[2020-07-30] MEDS ORDERED: METHOCARBAMOL 500 MG TABLET PO PRN (00:45)
[2020-07-30] MEDS: ISOSORBIDE MONONITRATE 30 MG TABLET PO SCH ×2 (01:55→10:47)
[2020-07-30] MEDS ORDERED: QUEtiapine 25 MG TABLET PO SCH (02:00)
[2020-07-30 02:22] LABS: Eosinophils 6 % (0-10); Lymphocytes 43 % (20-55); Platelet Estimate Normal; Segmented Neutrophils 44 % (50-85); Total Cells Counted 100
[2020-07-30 05:47] LABS: Calcium 9.4 MG/DL (8.5-10.1); Potassium 3.7 MMOL/L (3.5-5.1)
[2020-07-30 05:48] LABS: Risk Ratio 3.69; VLDL CHOLESTEROL 25.2 MG/DL
[2020-07-30] MEDS ORDERED: PANTOPRAZOLE 40 MG TABLET PO SCH (09:00)
[2020-07-30] MEDS ORDERED: ISOSORBIDE MONONITRATE 30 MG TABLET PO SCH (09:00)
[2020-07-30] MEDS ORDERED: FLUoxetine 20 MG CAPSULE PO SCH (09:00)
[2020-07-30] MEDS ORDERED: CLOPIDOGREL 75 MG TABLET PO SCH (09:00)
[2020-07-30] MEDS ORDERED: ASPIRIN CHEW 81 MG TABLET PO SCH (09:00)
[2020-07-30] MEDS ORDERED: NICOTINE 14 MG/24 HR PATCH TRANSDERM SCH (09:00)
[2020-07-30] MEDS: GABAPENTIN 300 MG CAPSULE PO SCH ×2 (10:47→14:45)
[2020-07-30 12:48] VITALS: BP 104/64
== END 2020-07-30 15:03 | disposition home or self-care (01) ==
LOC: EDBD → EDUNIT# → N.ED 21:51 → N.EDINP 21:51 → N.TELEN 07-30 01:13
PROVIDERS: ADMIT Internal Medicine; ATTEND Internal Medicine

== ENCOUNTER 2021-02-19 09:22 | Observation (INO) ==
[2021-02-19 09:55] LABS: Basophils % 0.6 % (0.0-0.8); Eosinophils # 0.2 10*3/uL (0.0-0.87); Eosinophils % 3.2 % (0.00-10.9); Hematocrit 43.2 VOL% (35.7-47.0); Hemoglobin 13.8 GM/DL (12.0-16.0); Immature Granulocytes % 0.6 %; Immature Granulocytes Absolute 0.03 #; Lymphocytes # 1.8 10*3/uL (1.4-4.0); Lymphocytes % 32.9 % (21.3-54.2); Mean Corpuscular HGB Conc 31.9 GM/DL (32-36); Mean Corpuscular Volume 90.9 FL (87-102); Mean Platelet Volume 11.6 FL (9.6-12.0); Monocytes % 8.6 % (1.7-12.7); Neutrophils % 54.1 % (38.7-73.9); Platelet Count 197 T/CUMM (130-400); Red Blood Count 4.75 MC/CUMM (3.8-5.5); Red Cell Distribution Width 13.3 % (9.3-17.3); White Blood Count 5.4 T/CUMM (4-12)
[2021-02-19] MEDS ORDERED: NITROGLYCERIN SL 0.4 MG TABLET SL PRN (10:14)
[2021-02-19 10:23] LABS: Albumin 3.6 G/DL (3.4-5.0); Bilirubin,Total 0.4 MG/DL (0.20-1.00); Calcium 9.3 MG/DL (8.5-10.1); Osmolality,Calculated 278.3 MOS/KG (273-304); Potassium 3.1 MMOL/L (3.5-5.1); Total Protein 7.7 G/DL (6.4-8.2)
[2021-02-19] MEDS ORDERED: POTASSIUM CHLORIDE 20 MEQ TABLET PO STA (10:25)
[2021-02-19 10:46] LABS: Barbiturates Screen,Urine Negative (Negative); Benzodiazepines Screen,Urine Negative (Negative); Cannabinoid Screen,Urine Negative (Negative); Opiate Screen,Urine Negative (Negative); Phencyclidine Screen,Urine Negative (Negative)
[2021-02-19] MEDS ORDERED: MORPHINE 2 MG/1 ML SYRINGE IV STA (10:55)
[2021-02-19] MEDS ORDERED: ONDANSETRON 4 MG/2 ML VIAL IV PRN (11:37)
[2021-02-19] MEDS ORDERED: DOCUSATE SODIUM 100 MG CAPSULE PO PRN (11:37)
[2021-02-19] MEDS ORDERED: ALBUTEROL/IPRATROPIUM 3 ML NEB RESP TX PRN (11:37)
[2021-02-19] MEDS ORDERED: ACETAMINOPHEN 325 MG TABLET PO PRN (11:37)
[2021-02-19] MEDS ORDERED: CALCIUM CARBONATE CHEW 500 MG TABLET PO PRN (11:37)
[2021-02-19] MEDS ORDERED: guaiFENesin/DM ER 600-30 MG TABLET PO PRN (11:37)
[2021-02-19] MEDS ORDERED: NICOTINE 21 MG/24 HR PATCH TRANSDERM PRN (11:37)
[2021-02-19] MEDS ORDERED: GABAPENTIN 300 MG CAPSULE PO PRN (11:47)
[2021-02-19] MEDS ORDERED: ENOXAPARIN 40 MG/0.4 ML SYRINGE SUBCUT SCH (21:00)
[2021-02-19] MEDS: DIVALPROEX 500 MG TABLET PO SCH (22:02)
[2021-02-20 05:54] LABS: Basophils % 0.5 % (0.0-0.8); Eosinophils # 0.2 10*3/uL (0.0-0.87); Hematocrit 42.1 VOL% (35.7-47.0); Hemoglobin 13.4 GM/DL (12.0-16.0); Immature Granulocytes % 0.5 %; Immature Granulocytes Absolute 0.03 #; Lymphocytes # 3.2 10*3/uL (1.4-4.0); Lymphocytes % 55.4 % (21.3-54.2); Mean Corpuscular HGB Conc 31.8 GM/DL (32-36); Mean Corpuscular Volume 91.7 FL (87-102); Mean Platelet Volume 11.5 FL (9.6-12.0); Monocytes % 9.3 % (1.7-12.7); Neutrophils % 31.3 % (38.7-73.9); Platelet Count 180 T/CUMM (130-400); Red Blood Count 4.59 MC/CUMM (3.8-5.5); Red Cell Distribution Width 13.3 % (9.3-17.3); White Blood Count 5.7 T/CUMM (4-12)
[2021-02-20 06:07] LABS: Calcium 8.6 MG/DL (8.5-10.1); Osmolality,Calculated 282.1 MOS/KG (273-304); Potassium 3.4 MMOL/L (3.5-5.1)
[2021-02-20 06:17] LABS: Band Neutrophils 1 % (0-10); Eosinophils 7 % (0-10); Lymphocytes 58 % (20-55); Platelet Estimate Normal; Segmented Neutrophils 26 % (50-85); Total Cells Counted 100
[2021-02-20 06:18] LABS: Anisocytosis Slight; Macrocytosis Slight
[2021-02-20] MEDS ORDERED: CLOPIDOGREL 75 MG TABLET PO SCH (09:00)
[2021-02-20] MEDS ORDERED: FUROSEMIDE 20 MG TABLET PO SCH (09:00)
[2021-02-20] MEDS ORDERED: ISOSORBIDE MONONITRATE 30 MG TABLET PO SCH (09:00)
[2021-02-20] MEDS ORDERED: ASPIRIN EC 81 MG TABLET PO SCH (09:00)
[2021-02-20] MEDS ORDERED: FLUoxetine 20 MG CAPSULE PO SCH (09:00)
[2021-02-20] MEDS: DIVALPROEX 500 MG TABLET PO SCH (09:52)
[2021-02-20 17:03] VITALS: BP 143/74
== END 2021-02-20 17:00 | disposition home or self-care (01) ==
LOC: N.ED 09:22 → N.EDINP 09:22 → SUATTDRO 11:37 → N.EDINP 14:58 → N.TELES 15:12
PROVIDERS: ADMIT Internal Medicine Geriatric Medicine; ATTEND Phlebology